=== PATIENT | female | born 2005 | race African-American/Black ===

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

== ENCOUNTER 2024-07-12 11:40 | Outpatient (CLI) | payer OTHER, SELFPAY ==
[2024-07-12 12:51] LABS: Basophils Absolute Auto 0.1 K/mm3 (0.0-0.1); Basophils Percent Auto 0.4 % (0.2-1.2); Eosinophils Absolute Auto 0.5 K/mm3 (0-0.3); Hemoglobin 9.4 g/dL (12.0-15.0); Immature Granulocyte Absolute 0.24 K/mm3 (0.00-0.031); Lymphocytes Absolute Auto 1.99 K/mm3 (0.9-3.2); Lymphocytes Percent Auto 16.4 % (18.3-44.2); Mean Corpuscular HGB Conc 32.4 g/dl (32-36); Mean Corpuscular Hemoglobin 26.9 pg (26-34); Mean Corpuscular Volume 82.9 fl (80-100); Mean Platelet Volume 9.3 fl (7.4-10.4); Monocytes Absolute Auto 0.8 K/mm3 (0.1-0.6); Monocytes Percent Auto 6.6 % (2.6-8.5); Neutrophils Absolute Auto 8.6 K/mm3 (1.3-6.7); Neutrophils Percent Auto 70.6 % (45.5-73.1); Platelet Count Result 395 k/mm3 (150-375); Red Cell Distribution Width 12.8 % (11.5-14.5); White Blood Count 12.1 K/mm3 (4.5-10.0)
[2024-07-12 13:11] LABS: Glucose 1 Hour PP 50gm Dose 110 mg/dL
== END 2024-07-12 11:41 | disposition home or self-care (01) ==
PROVIDERS: PCP Pediatrics Pediatric Emergency Medicine; Visit Provider Nurse Practitioner Family
DX: Z34.90 Encounter for supervision of normal pregnancy, unspecified, unspecified trimester (principal)
CPT/HCPCS: 36415; 82947; 85025

== ENCOUNTER 2024-07-24 17:42 | Outpatient (CLI) | payer OTHER, SELFPAY ==
[2024-07-24 18:51] LABS: Vitamin D 25 Hydroxy 16.2 ng/mL
[2024-07-24 19:15] LABS: HIV 1/2 Ab P24 Ag Result Negative (Negative)
[2024-07-24 19:18] LABS: Hepatitis B Surface Antigen Negative (Negative); Rubella IgG Antibody 44.3 IU/ML
[2024-07-24 19:23] LABS: Hepatitis C Virus Antibody Negative (Negative)
[2024-07-25 07:38] LABS: Rapid Plasma Reagin Non-Reactive (NonReactive)
[2024-07-25 19:05] LABS: Hematocrit 26.8 % (35.0-45.0); Hemoglobin 8.3 g/dL (11.7-15.5); MCH 25.4 pg (27.0-33.0); Red Blood Cell Count 3.27 Million/uL (3.80-5.10)
[2024-07-26 04:14] LABS: Varicella IgG Antibody 3.01 S/CO
== END 2024-07-24 17:43 | disposition home or self-care (01) ==
LOC: ANHLAB 17:43
PROVIDERS: PCP Pediatrics Pediatric Emergency Medicine; Visit Provider Nurse Practitioner Family
DX: Z34.90 Encounter for supervision of normal pregnancy, unspecified, unspecified trimester (principal)
CPT/HCPCS: 36415; 82306; 83021; 84443; 86592; 86703; 86762; 86787; 86803; 86850; 86900; 86901; 87086; 87340; G0432

== ENCOUNTER 2024-08-22 11:09 | Outpatient (CLI) | payer OTHER, SELFPAY ==
[2024-08-22 11:53] LABS: Basophils Absolute Auto 0.1 K/mm3 (0.0-0.1); Basophils Percent Auto 0.6 % (0.2-1.2); Eosinophils Absolute Auto 0.3 K/mm3 (0-0.3); Eosinophils Percent Auto 2.7 % (0-4.4); Hemoglobin 8.5 g/dL (12.0-15.0); Immature Granulocyte Absolute 0.32 K/mm3 (0.00-0.031); Immature Granulocyte Percent A 2.5 % (0-0.5); Lymphocytes Absolute Auto 1.98 K/mm3 (0.9-3.2); Lymphocytes Percent Auto 15.5 % (18.3-44.2); Mean Corpuscular HGB Conc 30.4 g/dl (32-36); Mean Corpuscular Hemoglobin 23.7 pg (26-34); Mean Corpuscular Volume 78.2 fl (80-100); Mean Platelet Volume 9.8 fl (7.4-10.4); Monocytes Absolute Auto 1.2 K/mm3 (0.1-0.6); Monocytes Percent Auto 9.1 % (2.6-8.5); Neutrophils Absolute Auto 8.9 K/mm3 (1.3-6.7); Neutrophils Percent Auto 69.6 % (45.5-73.1); Platelet Count Result 437 k/mm3 (150-375); Red Blood Count 3.58 M/mm3 (4.2-5.4); White Blood Count 12.8 K/mm3 (4.5-10.0)
[2024-08-22 12:44] LABS: HIV 1/2 Ab P24 Ag Result Negative (Negative)
[2024-08-22 12:51] LABS: Rapid Plasma Reagin Non-Reactive (NonReactive)
== END 2024-08-22 11:10 | disposition home or self-care (01) ==
PROVIDERS: Visit Provider Obstetrics & Gynecology
DX: Z34.90 Encounter for supervision of normal pregnancy, unspecified, unspecified trimester (principal)
CPT/HCPCS: 36415; 85025; 86592; 86703; G0432

== ENCOUNTER 2024-09-15 01:02 | Inpatient (IN) | payer OTHER, SELFPAY ==
[2024-09-15] VITALS (85 sets, daily range): BP systolic 78–136; BP diastolic 36–97; PULSE 60–126; RESP 18; TEMP 36.2–37.2; O2SAT 92–100; BMI 30.4
[2024-09-15] MEDS: AMPICILLIN 2 GM/NS 100 ML 2 GM/100 ML BAG IVPB (02:30)
[2024-09-15] MEDS: LACTATED RINGERS 1,000 ML 125 ML IV CONT (02:30)
[2024-09-15 02:31] LABS: Basophils Absolute Auto 0.1 K/mm3 (0.0-0.1); Basophils Percent Auto 0.5 % (0.2-1.2); Eosinophils Absolute Auto 0.2 K/mm3 (0-0.3); Eosinophils Percent Auto 1.6 % (0-4.4); Hemoglobin 8.1 g/dL (12.0-15.0); Immature Granulocyte Percent A 1.6 % (0-0.5); Lymphocytes Percent Auto 21.1 % (18.3-44.2); Mean Corpuscular HGB Conc 31.2 g/dl (32-36); Mean Corpuscular Hemoglobin 22.8 pg (26-34); Mean Corpuscular Volume 73.2 fl (80-100); Mean Platelet Volume 9.8 fl (7.4-10.4); Monocytes Absolute Auto 1.3 K/mm3 (0.1-0.6); Monocytes Percent Auto 10.1 % (2.6-8.5); Neutrophils Absolute Auto 8.3 K/mm3 (1.3-6.7); Neutrophils Percent Auto 65.1 % (45.5-73.1); Platelet Count Result 475 k/mm3 (150-375); Red Blood Count 3.55 M/mm3 (4.2-5.4); Red Cell Distribution Width 15.3 % (11.5-14.5); White Blood Count 12.8 K/mm3 (4.5-10.0)
[2024-09-15] MEDS: OXYTOCIN 30 UNITS/NS 500 ML 30 UNITS/500 ML BAG IV CONT (02:45)
--- NOTE | 2024-09-15 02:52 | LDADM ---
This patient, Tova Montesinos, was admitted to Labor/Delivery/Recovery 104 on 09/15/24 at 01:02. Plans for labor, pain management and were discussed with patient. Patient/family oriented to hospital policies and general routines including ID bracelet, bed and alarms, visiting hours, pain management, procedures, bathroom and other care routines, personal items, smoking policy, room service/diet and guest tray routines, security routines, and visiting hours. Patient/Family are encouraged to report perceived risks to care and to ask questions if they do not understand what they are told or what they should do. See OBIX for further documentation.
[2024-09-15 03:23] LABS: HIV 1/2 Ab P24 Ag Result Negative (Negative)
[2024-09-15] MEDS: AMPICILLIN 1 GM/NS 50 ML 1 GM/50 ML BAG IVPB ×2 (07:00→11:30)
[2024-09-15 09:01] LABS: Rapid Plasma Reagin Non-Reactive (NonReactive)
--- NOTE | 2024-09-15 10:26 | P.PNOB_ITS ---
OB - PN: Subj Subjective Date/time seen: 09/15/24 10:26 Interval history: Cat 1, cervix /-2, forebag rupture, continue pitocin. OB - PN: Obj Data Labs 09/15/24 02:12 Labs: Laboratory Results - last 24 hr 09/15/24 02:12 WBC 12.8 H RBC 3.55 L Hgb 8.1 L Hct 26.0 L MCV 73.2 L MCH 22.8 L MCHC 31.2 L RDW 15.3 H Plt Count 475 H MPV 9.8 Immature Gran % (Auto) 1.6 H Neut % (Auto) 65.1 Lymph % (Auto) 21.1 [place] % (Auto) 10.1 H Eos % (Auto) 1.6 Baso % (Auto) 0.5 Lymph # (Auto) 2.70 [place] # (Auto) 1.3 H Eos # (Auto) 0.2 Baso # (Auto) 0.1 Abs Immat Gran (auto) 0.20 H Absolute Neuts (auto) 8.3 H Absolute Nucleated RBC 0.000 Nucleated RBC % 0.0 RPR Non-reactive HIV 1&2 Ab/P24 Ag 4thGn Negative Blood Type B Positive Antibody Screen Negative OB - PN A/P Time Spent With Patient Time: Total time spent is greater than 50% in coordination of care (as documented) at patient's floor/unit and/or counseling patient:
--- NOTE | 2024-09-15 10:26 | PM.IMHP ---
H&P: HPI History of Present Illness Date/Time: 09/15/24 10:26 Chief Complaint: Leaking of fluid Narrative: She is a 19 y/o G1 at 38 weeks with an edc 09/26/23 presented with c/o leaking. SROM confirmed clear. Cervix 3 cm. PNC significant for GBS in urine late transfer to care and h/o anemia. She is taking iron therapy. Review of Systems Review of Systems: All systems reviewed & are unremarkable except as noted in HPI and below Constitutional: Constitutional: Reports no additional constitutional complaints and Denies headache(s) Eyes: Eyes: Denies spots in vision ENT: Reports system reviewed and no additional complaints, except as documented and Denies headache(s) Cardiovascular: Cardiovascular: Denies chest pain and Denies dyspnea Respiratory: Respiratory: Denies dyspnea Gastrointestinal: Gastrointestinal: Reports no additional gastrointestinal complaints Genitourinary: Genitourinary: Reports amenorrhea Musculoskeletal: Musculoskeletal: Reports no additional musculoskeletal complaints Integumentary/Breasts: Skin/Breast: Denies breast mass and Denies rash Neurologic: Denies headache(s) Psychiatric: Psychiatric: Reports no additional psychiatric complaints PMFSH Past Medical History Medical History Asthma Surgical History Surgical History No significant past surgical history Family History Family History Grandparent Cervical cancer Asthma Mother Asthma Other No significant family history Social History Social History Smoking status: Former smoker Tobacco type: e-cigarettes/vaping Second hand tobacco smoke exposure: No Alcohol intake: never Substance use: never Do You Feel Safe in your Home?: Yes Lack of Transportation: No Lack of Food: Never True Current Housing: I Have Housing Concerned About Future Housing: No Difficulty Paying Gas/Electric Bills: No Difficulty Paying for Meds: No Currently Unemployed: No Education: Bachelor's Degree Difficulty w/ Childcare or Family Care: No Living arrangements: with family Occupation/Education: student Gender identity (if verbalized by the patient): Female Spiritual care concerns: No Meds Home Medications and Allergies Home Medications ?Medication ?Instructions ?Recorded ?Confirmed ?Type albuterol sulfate 90 mcg/actuation 1 puff inhalation Q4H PRN asthma 07/25/24 09/15/24 History aerosol inhaler docosahexaenoic acid 200 mg 200 mg PO DAILY 07/25/24 09/15/24 History capsule ( DHA) ferrous sulfate 325 mg (65 mg 325 mg PO DAILY 08/08/24 09/15/24 History iron) tablet Allergies Allergy/AdvReac Type Severity Reaction Status Date / Time avocado Allergy Mild Hives Verified 09/15/24 02:48 Vital Signs Vital Signs - 24 hr 09/15/24 02:15 09/15/24 02:31 09/15/24 02:45 Temperature Pulse Rate 90 83 75 Blood Pressure 126/69 87/60 L 102/44 L Oxygen Delivery 09/15/24 02:52 09/15/24 03:01 09/15/24 03:15 Temperature 97.7 F Pulse Rate 78 Blood Pressure 111/54 L Oxygen Delivery Room Air 09/15/24 03:31 09/15/24 04:01 09/15/24 04:31 Temperature Pulse Rate 79 78 Blood Pressure 124/62 125/56 L 123/66 Oxygen Delivery 09/15/24 05:00 09/15/24 05:15 09/15/24 05:30 Temperature 98 F Pulse Rate 90 95 Blood Pressure 121/55 L 111/56 L Oxygen Delivery 09/15/24 06:00 09/15/24 06:30 09/15/24 07:00 Temperature Pulse Rate 93 86 100 Blood Pressure 117/57 L 123/66 111/48 L Oxygen Delivery 09/15/24 07:20 09/15/24 07:31 09/15/24 08:00 Temperature 97.8 F Pulse Rate 73 94 Blood Pressure 103/43 L 115/77 Oxygen Delivery 09/15/24 08:31 09/15/24 09:01 09/15/24 09:30 Temperature Pulse Rate 81 81 94 Blood Pressure 120/61 117/59 L 119/70 Oxygen Delivery 09/15/24 10:00 Temperature Pulse Rate 92 Blood Pressure 126/89 Oxygen Delivery Exam Const: General: no acute distress Eyes: General: appearance normal, both eyes and all related structures Resp: Effort & Inspection: normal respiratory effort Cardio: Rate: regular rate GI: Other: Gravid no fundal tenderness no right upper quadrant pain Skin: General skin exam: no rashes or lesions noted Neuro: Cognition (Neuro): normal cognition Extrem: General: normal to inspection Psych: Mental Status: mental status grossly normal H&P: Results Labs Labs: Short CBC 09/15/24 Range/Units 02:12 WBC 12.8 H (4.5-10.0) K/mm3 Hgb 8.1 L (12.0-15.0) g/dL Hct 26.0 L (37.0-47.0) % Plt Count 475 H (150-375) k/mm3 Assessment and Plan Assessment and plan (1) Spontaneous rupture of membranes: Status: Acute Assessment and Plan: 1. Admit 2. Pitocin augmentation if not progressing in labor. (2) GBS carrier: Code(s): Z22.330 - Carrier of Group B streptococcus Status: Acute Assessment and Plan: IV Ampicillin.
[2024-09-15] MEDS: fentaNYL CITRATE INJ (*CRX) 100 MCG/2 ML VIAL IV PUSH (10:43)
--- NOTE | 2024-09-15 14:12 | PM.OBPRVD ---
OB - Vaginal Delivery Note Procedure Delivery date: 09/15/24 Events: Positive Group B Strep (GBS) (in urine in first trimester) Delivery augmentation: Rupture of Membranes and Pitocin Delivery monitor: External FHT and Internal Uterine Route of delivery: Episiotomy description: None Laceration Description: Vaginal (small upper and lower right hemostasis obtained with figure of eight 2.0 vicryl) Delivery repair: vicryl (2.0 vicryl) Specimen: No Quantitative Blood Loss (ml): 150 Anesthesia type: Epidural Complications: No immediate complications Narrative: She was admitted due to PROM. She was started on Ampicillin for GBS prophylaxis. She slowly made progression. Pitocin started. A forebag was AROM and she progressed in labor. Epidural placed on request. She dilated rapidly to complete. tracing with variables. She delivered a male over intact perineum. There was a compound left hand presentation. Infant's nose and mouth suctioned at perineum. The shoulder and the rest of infant delivered. was vigorously crying and placed on maternal abdomen. Delayed cord clamping for one minute. Cord gases and cord blood obtained. Pitocin started. Placenta delivered spontaneously and intact. She sustained small vaginal laceration at left side. Hemostasis obtained with 2.0 vicryl figure of eight stitch. [place] Baby Date of : 09/15/24 Time of : 13:53 Gestational Age by Date: 38 gender: Male presentation: vertex position: Right Occiput Anterior Placenta delivery description: Spontaneous Cord Vessel Description: 3 Vessels and Delayed Cord Clamping score one minute: 9 score five minutes: 9
[2024-09-15] MEDS: OXYTOCIN 30 UNITS/NS 500 ML 30 UNITS/500 ML BAG 125 UNITS IV CONT (14:30)
--- NOTE | 2024-09-15 16:56 | PC.NURSE ---
Patient transferred to post room #282 via wheelchair. Support person present. Oriented to unit, room, information board, rooming in, admission packet and security measures. Patient verbalizes understanding.
[2024-09-15] MEDS: IBUPROFEN 600 MG TABLET PO (23:42)
[2024-09-16 07:30] VITALS: BP 114/69; PULSE 65; RESP 16; TEMP 36.9; O2SAT 98
[2024-09-16 07:33] LABS: Hematocrit 24.9 % (37.0-47.0); Hemoglobin 7.7 g/dL (12.0-15.0)
[2024-09-16] MEDS: POLYSACCHARIDE IRON COMPLEX 150 MG CAPSULE PO ×2 (08:11→16:53)
[2024-09-16] MEDS: MULTIVIT/MIN/PREN/FOL AC/IRON TABLET 1 TAB PO (08:11)
[2024-09-16] MEDS: DOCUSATE SODIUM 100 MG CAPSULE PO ×2 (08:11→16:54)
--- NOTE | 2024-09-16 09:08 | PC.NURSE ---
Introductions were made, then consulted with patient to assess needs related to . Mother led the conversation with her?plans to feed?her and the?experience so far. Mother is wanting to exclusively breastfeed and she had a few feeds through the night where her nipple was pinched and she knows that she needed to latch baby deeper. Encouraged understanding of the benefits of skin to skin (demonstrating unwrapping and placing upright on her chest), stimulating with massage touch, changing positions to encourage wakefulness, how to watch for early feeding cues, responsive feeding, feeding on demand (aiming for 8-12 times in 24 hours, about every 2-3 hours), milk production, building/maintaining a milk supply, duration of feeding, signs of adequate intake/output and how to record on the feeding sheet. Mother works well with her with encouragement and education. Reviewed positioning and ear, shoulder, hip alignment, supporting the breast to facilitate a deep latch, asymmetrical latch (off-center), leading with the chin with a big, open, wide gape and body close to mother. latched optimally to the [right] breast in [cradle] position. Education given to the mother of how to visualize the suckling (with good rocking jaw motion), swallows (dropping of the lower jaw) and how to listen for drinking at the breast (the ka sound). Infant was [able] to maintain latch without pain to mother protecting the nipple with optimal positioning and latching. Mother and RN were able to hear swallows. Reviewed comfort measures of healing with a warm, wet washcloth to rinse breast, then leave open to air-dry, good handwashing when or touching the breast/nipples to prevent infection. Mother voiced understanding of skin to skin, stimulating with massage touch, responsive feedings, hand expressed colostrum, talking to to encourage if it has been 2 -2.5 hours since the start of the last , to call if infant does not latch, or if there is discomfort with . Resources used for education were facilitated with the [visual educational handouts/ tool/mom and baby guide], Inpatient/outpatient resources provided with business card, feeding sheet, name written on the communication board, and the mom/baby guide. Parents voiced understanding of information, demonstrated learning and will call if there is a request for assistance. Reported to the Primary RN.
--- NOTE | 2024-09-16 09:14 | WPDANLDPN2 ---
Anes-Prog Note L&D Date/Time: 09/16/24 09:14 Comfortable throughout: labor and delivery Neuraxial method: epidural Epidural/Spinal procedure site: clean & non-tender Neuro status: Neuro function grossly intact. Cardiovascular status: normal Respiratory status: normal Airway patency: baseline Mental status: baseline Post-Op hydration status: normal Vital Signs: Last Vital Signs Temp 36.9 C 09/16/24 07:30 Pulse 65 09/16/24 07:30 Resp 16 09/16/24 07:30 BP 114/69 09/16/24 07:30 Pulse Ox 98 09/16/24 07:30 O2 Del Method Room Air 09/15/24 19:10 Pain score (VAS): 0/10 Post-procedural complaints: none Patient feedback: Patient satisfied with anesthetic care.
[2024-09-16] MEDS: IBUPROFEN 600 MG TABLET PO ×2 (12:08→19:19)
[2024-09-16 12:15] VITALS: BP 125/63; PULSE 100; RESP 16; TEMP 37.1; O2SAT 98
--- NOTE | 2024-09-16 18:09 | PC.NURSE ---
1500. Mother verbalizes she is able to independently latch infant with appropriate positioning and alignment. She denies any nipple discomfort and is responsively . is currently meeting outcomes for weight, output, jaundice, blood sugar and feeding frequencies of 8-12 times in 24 hours. Mother declines any additional assistance or education at this time. Mother is encouraged to call for assistance if her doesn?t latch, pain with latching, questions or concerns. Mother voiced understanding of information shared along with the mom/baby guide for an additional resource. Reported to the Primary RN.
[2024-09-16] MEDS: ACETAMINOPHEN 325 MG TABLET 650 MG PO (19:19)
[2024-09-16 19:45] VITALS: BP 97/59; PULSE 64; RESP 14; TEMP 36.8; O2SAT 99
[2024-09-17] MEDS: ACETAMINOPHEN 325 MG TABLET 650 MG PO (01:33)
[2024-09-17] MEDS: IBUPROFEN 600 MG TABLET PO (01:34)
[2024-09-17 07:30] VITALS: BP 113/71; PULSE 89; RESP 16; TEMP 36.6; O2SAT 99
[2024-09-17] MEDS: DOCUSATE SODIUM 100 MG CAPSULE PO (07:31)
[2024-09-17] MEDS: MULTIVIT/MIN/PREN/FOL AC/IRON TABLET 1 TAB PO (07:31)
[2024-09-17] MEDS: POLYSACCHARIDE IRON COMPLEX 150 MG CAPSULE PO (07:31)
--- NOTE | 2024-09-17 08:20 | PC.NURSE ---
Consulted with mother concerning needs and she shared her ability to independently latch infant optimally without pain. Mother is feeding appropriately for growth of and understands stimulating to eat if needed. Infant has had appropriate feedings in the last 24 hours meets the outcomes for weight, output, blood sugar and jaundice at this time. Reinforced understanding of milk production, transition of milk, signs of adequate intake, transition of stool, prevention/relief of engorgement, plugged ducts, mastitis, responsive watching for feeding cues, community resources ([facility] form fax[facility] to [facility]), and when to call a provider using the resource of the feeding sheet along with the mom and baby guide. Mother voiced understanding of the information shared, is confident to continue effectively her infant at home, when to call for assistance, denies any additional assistance or education at this time. Reported to the Primary RN.
--- NOTE | 2024-09-17 12:09 | P.DS_ITS ---
DS: Admitting Diagnosis Discharge Date 09/17/24 Admitting Diagnosis Spontaneous rupture of membranes DS: Discharge Diagnosis Discharge Diagnosis (1) Vaginal delivery: Code(s): O80 - Encounter for full-term uncomplicated delivery Status: Acute OB - DS: Summary Hospital Course Hospital Course: She was admitted for early labor with spontaneous rupture membranes. Labor was augmented with Pitocin. She had uncomplicated vaginal delivery. she did well. she has asymptomatic anemia which she was receiving Oral iron therapy. Baby did well. She had adequate pain control decreasing lochia was ambulating well was discharged home on day 2. OB Procedures : Ultrasound OB Procedures Intrapartum: Spontaneous Vag Delivery OB Procedures: : None Peripartum Data Delivery Method: Natural Vaginal Laceration Description: Vaginal (small upper and lower right hemostasis obtained with figure of eight 2.0 vicryl) Episiotomy description: None complications: none Status at Discharge Functional status at discharge: independent ambulation Time Spent with Patient Time attestation: Total time spent providing and/or coordinating discharge services: Exam Const: General: cooperative Orientation/consciousness: oriented to person, oriented to place and oriented to time HENMT: Face/Nose/Sinus: Normal external nose present Eyes: General: appearance normal, both eyes and all related structures Resp: Effort & Inspection: normal respiratory effort GI: Inspection: normal to inspection Skin: General skin exam: normal color Neuro: General: oriented to person, oriented to place and oriented to time Extrem: General: normal to inspection and no calf tenderness Psych: Appearance: grossly normal Mental Status: mental status grossly normal Discharge Plan Discharge Attending physician on discharge: Dawson Lane Consulting providers: Ernestine Cano Discharging Clinician: Dawson Lane Anticipated Discharge Date/Time: 09/17/24 12:03 Patient Disposition: Home, Self-Care Activity: may shower and pelvic rest Diet: regular Patient Instructions: Antibiotic Form, Vaginal Delivery (DC) Patient Language: Greek Stand Alone Forms: General Discharge Information Follow-up/Referrals: Dawson Lane MD [Physician] - Call for Appointment Discharge Medications: No Action ferrous sulfate 325 mg (65 mg iron) tablet 325 mg PO DAILY DHA 200 mg capsule 200 mg PO DAILY albuterol sulfate 90 mcg/actuation HFA aerosol inhaler 1 puff inhalation Q4H PRN (Reason: asthma) Date of admission: 09/15/24 01:02 Primary Care Provider: PHYSICIAN,AGRISCIENCE TECHNOLOGY INSTRUCTOR Admitting Provider: Dawson Lane Attending physician on admission: Dawson Lane Condition: Stable
[2024-09-19 09:19] VITALS: BP 118/70; PULSE 95; RESP 18; TEMP 36.9; O2SAT 100
--- OUTSIDE RECORDS SUMMARY | 2024-09-22 02:00 | XMS_ITS | Encounter Summary ---
Author Organization [facility] Healthcare Address [address] [place] [address] Care Team Providers Care Foreman Shipping Department Name Role Phone Unavailable Primary Care Provider Unavailabl e Encounter Details Date Type Department Care Team (Late st Contact Info) Description 10/31/2008 1:11 PM DYNAMICS AX CONSULTANT - 10/31/2008 11:59 PM DYNAMICS AX CONSULTANT Hospital Encounter [facility] Deirdre Oneil MD [address] [place] [id number] Fever due to unspecified condition; Cough Social History Tobacco Use Types Packs/Day Years Used Date Smoking Tobacco: Never Assessed Comments Unknown Sex and Gender Information Value Date Recorded Sex Assigned at Not on file Legal Sex Female 4:21 PM DYNAMICS AX CONSULTANT Gender Identity Not on file Sexual Orientation Not on file documented as of this encounter Plan of Treatment Not on file documented as of this encounter Visit Diagnoses Diagnosis Fever due to unspecified condition Cough documented in this encounter
--- OUTSIDE RECORDS SUMMARY | 2024-09-22 02:00 | XMS_ITS | Clinical Summary ---
Author Organization [facility] Address [address] [place] [phone] Phone Care Team Providers Care Air Intelligence Officer Name Role Phone Unavailable Primary Care Provider Unavailabl e Encounters Date Type Department Care Team Description 07/30/2024 External Device Data STL ABSTRACTION Provider, Abstract 07/25/2024 2:30 PM CASCADE OPERATOR - 07/25/2024 11:59 PM CASCADE OPERATOR Hospital Encounter [facility] Maternal and [facility] [address] [place] [address] Dawson Baig MD Discharge Disposition: Home or Self Care from Last 3 Months Social History Tobacco Use Types Packs/Day Years Used Date Smoking Tobacco: Never Assessed Sex and Gender Information Value Date Recorded Sex Assigned at Not on file Gender Identity Not on file Sexual Orientation Not on file Plan of Treatment Health Maintenance Due Date Last Done Comments PNEUMOCOCCAL VACCINE 0-64 YE ARS (1 of 2 - PCV) 2010 CHLAMYDIA SCREENING (ANNUAL) 11-24 YEARS 2015 HPV VACCINES (1 - 3-dose series) 2019 DTAP/TDAP/TD VACCINES (1 - Tdap) 2023 HEPATITIS B VACCINES (1 of 3 - 19+ 3-dose series) 2023 INFLUENZA VACCINE (#1) 2024 11/14/2015 COVID-19 Vaccine (3 - 2023- season) 05/19/202411/2020, 05/26/2021 Procedures Procedure Name Priority Date/Time Associated Diagnosis Comments US OB DETAIL SINGLE GEST Routine 07/25/2024 3:47 PM CASCADE OPERATOR Short cervix affecting from Last 3 Months Results * US OB DETAIL SINGLE GEST (07/25/2024 3:47 PM CASCADE OPERATOR) Anatomical Region Laterality Modality Pelvis Ultrasound 07/25/2024 3:47 PM CASCADE OPERATOR Narrative 07/25/2024 3:53 PM CASCADE OPERATOR STL COMP ----- Pat. Name: MICHELE MONTESINOS Study Date: 07/25/2024 3:47pm Pat. NO: [id number] Referring ??MD: DAWSON BAIG MD Site: [place] Rn Review: Jazmín Vuong RDMS : 2005 Age: 19 ----- INDICATION ----- Anatomy Survey CODING ----- Diagnoses ? Z3A.31: Weeks of gestation ?Z36.3: Encounter for screening for malformations Procedures ?77880: Ultrasound, uterus, real time with image documentation, and maternal evaluation ?plus detailed anatomic examination, transabdominal approach HISTORY ----- OB History ? 1. Para 0 MATERNAL ASSESSMENT ----- Physical Exam ? Weight 69 kg. BMI 27.10 kg/m?? METHOD ----- Transabdominal ultrasound examination ----- Zazueta . Number of fetuses: 1 DATING ----- Method of dating: based on stated JALEN GA by prior assessment 31 w + 0 d JALEN by prior assessment: 09/26/2024 Ultrasound examination on: 07/25/2024 GA by U/S based upon: AC, BPD, EFW, Femur, HC GA by U/S 30 w + 2 d JALEN by U/S: 10/01/2024 Assigned: based on stated JALEN, selected on 07/25/2024 Assigned GA 31 w + 0 d Assigned JALEN: 09/26/2024 BIOMETRY ----- BPD ?73.4 ? mm ? 29w 3d ? 6% ?Hadlock OFD ?96.3 ? mm ? 31w 1d ? 53% ?Darya HC ? 274.0 ?mm ? 29w 6d ? 3% ?Hadlock Cerebellum tr ?40.3 ? mm ? 33w 4d ? 72% ?Perdomo AC ? 283.1 ?mm ? 32w 2d ? 83% ?Hadlock Femur ?55.9 ? mm ? 29w 3d ? 6% ?Hadlock Humerus ?48.9 ? mm ? 28w 5d ? 5% ?Darya HC / AC ?0.97 ?6% ? Nicolaides Weight Calculation: EFW ? 1,674 ? g ? 30w 4d ?37% ?Hadlock EFW (lb,oz) ? 3 lb 11 ? oz EFW by ?Hadlock ([id number]) Head / Face / Neck Biometry: Custom Framing Specialist ? 3.7 ? mm CM ? 3.9 ? mm ? <1% ?Nicolaides Outer IOD ? 43.4 ?mm ? 27w 3d ?<1% ?Darya Heart / Great Vessels Biometry: Ao isthmus ? 3.6 ?mm Extremities / Bony Struc Biometry: FL / BPD ?0.76 FL / HC ? 0.20 FL / AC ? 0.20 GENERAL EVALUATION ----- Cardiac activity present. FHR 149 bpm. movements: present. Presentation: cephalic Placenta: Placental site: posterior not low Umbilical cord: Cord vessels: 3 vessel cord. Insertion site: placental insertion: normal Amniotic fluid: Amount of AF: normal amount. MVP 4.9 cm. VERO 9.8 cm. Q1 4.9 cm, Q2 2.2 cm, Q3 2.7 cm, Q4 0.0 cm ANATOMY ----- The following structures appear normal: Head / Neck ? Cranium. Lateral ventricles. Choroid plexus. Midline falx. Cavum septi pellucidi. Cerebellum. Cisterna ?magna. Thalami. Face ?Lips. Profile. Nose. Palate. Orbits. Heart / Thorax ?4-chamber view. RVOT view. LVOT view. 3-vessel view. 0-vmiwnc-ocxvsfo view. Situs. Aortic arch view. ?Ductal arch view. Superior vena cava. Inferior vena cava. High short axis view. Cardiac rhythm. ?Diaphragm. Abdomen ? Stomach. Kidneys. Bladder. Spine ? Cervical spine. Thoracic spine. Lumbar spine. Sacral spine. Extremities / ? Arms. Right arm. Legs. Skeleton The following structures could not be adequately visualized: Abdomen ? Abdominal wall. Extremities / ? Right hand. Left arm. Left hand. Right foot. Left foot. Skeleton MATERNAL STRUCTURES ----- Cervix ?Visualized ?Approach - Transabdominal Right Ovary ? Suboptimal Left Ovary ?Normal ?Size 35 mm x 27 mm x 17 mm. Vol 8.2 cm?? GROWTH OVERVIEW ----- Exam date ?GA ?BPD (mm) ?HC (mm) ? AC (mm) ? FL (mm) ? HL (mm) ? EFW (g) 07/25/2024 ?31w 0d ?73.4 ?6% ?274.0 ? 3% ?283.1 ?83% ?55.9 ?6% ?48.9 ?5% ?37% COMMENT ----- Patient's name and date of were verified by the ballast cleaning operator before the exam IMPRESSION ----- 1. Single living fetus with a gestational age of 31w 0d based on the reported clinical dates. 2. Current growth parameters are consistent with the stated EDC. The fetus is appropriate for gestational age in size at the 37% (1674 g). 3. Detailed anatomic survey is unremarkable. No gross structural abnormalities noted. No sonographic markers for aneuploidy noted. Suboptimal: PRISON, hands, feet, left arm 4. Amniotic fluid volume is normal for gestational age. 5. The cervical length is within normal range for gestational age. 6.Placenta is posterior . No previa/not low-lying. The placental cord insertion appears normal. Recommendations: - Further ultrasounds based on clinical indication. Thank you for allowing us to participate in the care of this patient. Procedure Note Samanta Patiño MD - 07/25/2024 STL COMP ----- Pat. Name:Brady MONTESINOS Date:07/25/2024 3:47pm Pat. NO: [id number] MD:DAWSON BAIG MD [facility]azm[facility] Vuong RDMS :2005Age:19 ----- INDICATION ----- Anatomy Survey CODING ----- Diagnoses Z3A.31: Weeks of gestation Z36.3: Encounter for screening formalformations Procedures [id number]: Ultrasound, uterus, real time withimage documentation, and maternal evaluation plus detailed anatomic examination,transabdominal approach HISTORY ----- OB History 1. Para 0 MATERNAL ASSESSMENT ----- Physical Exam Weight 69 kg. BMI 27.10 kg/m?? METHOD ----- Transabdominal ultrasound examination ----- Zazueta . Number of fetuses: 1 DATING ----- Method of dating:based on stated JALEN GA by prior [id number] w + 0 d JALEN by prior assessment:09/26/2024 Ultrasound examination on:07/25/2024 GA by U/S based upon:AC, BPD, EFW, Femur, HC GA by U/S30 w + 2 d JALEN by U/S:10/01/2024 Assigned:based on stated JALEN, selected on 07/25/2024 Assigned GA31 w + 0 d Assigned JALEN:09/26/2024 BIOMETRY ----- BPD 73.4 mm 29w 3d6% Hadlock OFD 96.3 mm 31w 1d53% Darya HC 274.0 mm 29w 6d3% Hadlock Cerebellum tr 40.3 mm 33w 4d72% Perdomo AC 283.1 mm 32w 2d83% Hadlock Femur 55.9 mm 29w 3d6% Hadlock Humerus 48.9 mm 28w 5d5% Darya HC / AC 0.97 6%Nicolaides Weight Calculation: EFW 1,674 g 30w 4d37% Hadlock EFW (lb,oz) 3 lb 11 oz EFW by Hadlock ([id number]) Head / Face / Neck Biometry: Custom Framing Specialist 3.7 mm CM 3.9 mm <1%Nicoalyssaides Outer IOD 43.4 mm 27w 3d <1%Darya Heart / Great Vessels Biometry: Ao isthmus 3.6mm Extremities / Bony Struc Biometry: FL / BPD 0.76 FL / HC 0.20 FL / AC 0.20 GENERAL EVALUATION ----- Cardiac activity present. FHR 149 bpm. movements: present.Presentation: cephalic Placenta: Placental site: posterior not low Umbilical cord: Cord vessels: 3 vessel cord. Insertion site: placentalinsertion: normal Amniotic fluid: Amount of AF: normal amount. MVP 4.9 cm. VERO 9.8 cm. Q14.9 cm, Q2 2.2 cm, Q3 2.7 cm, Q4 0.0 cm ANATOMY ----- The following structures appear normal: Head / Neck Cranium. Lateral ventricles. Choroid plexus.Midline falx. Cavum septi pellucidi. Cerebellum. Cisterna magna. Thalami. Face Lips. Profile. Nose. Palate. Orbits. Heart / Thorax 4-chamber view. RVOT view. LVOT view. 3-vesselview. 6-jwqwkw-uzynojt view. Situs. Aortic arch view. Ductal arch view. Superior vena cava. Inferiorvena cava. High short axis view. Cardiac rhythm. Diaphragm. Abdomen Stomach. Kidneys. Bladder. Spine Cervical spine. Thoracic spine. Lumbar spine.Sacral spine. Extremities / Arms. Right arm. Legs. Skeleton The following structures could not be adequately visualized: Abdomen Abdominal wall. Extremities / Right hand. Left arm. Left hand. Right foot. Leftfoot. Skeleton MATERNAL STRUCTURES ----- Cervix Visualized Approach - Transabdominal Right Ovary Suboptimal Left Ovary Normal Size 35 mm x 27 mm x 17 mm. Vol 8.2 cm?? GROWTH OVERVIEW ----- Exam date GA BPD (mm) HC (mm) AC (mm) FL(mm) HL (mm) EFW (g) 07/25/2024 31w 0d 73.4 6% 274.0 3% 283.1 83% 55.96% 48.9 5% 1,674 37% COMMENT ----- Patient's name and date of were verified by the ballast cleaning operator beforethe exam IMPRESSION ----- 1. Single living fetus with a gestational age of 31w 0d based on thereported clinical dates. 2. Current growth parameters are consistent with the stated EDC. The fetusis appropriate for gestational age in size at the 37% (1674 g). 3. Detailed anatomic survey is unremarkable. No gross structuralabnormalities noted. No sonographic markers for aneuploidy noted. Suboptimal: PRISON, hands, feet, left arm 4. Amniotic fluid volume is normal for gestational age. 5. The cervical length is within normal range for gestational age. 6.Placenta is posterior . No previa/not low-lying. The placental cordinsertion appears normal. Recommendations: - Further ultrasounds based on clinical indication. Thank you for allowing us to participate in the care of this patient. Dawson Baig MD US ORDERABLES from Last 3 Months
--- OUTSIDE RECORDS SUMMARY | 2024-09-22 02:00 | XMS_ITS | Encounter Summary ---
Author Organization [facility] Healthcare Address [address] [place] [address] Care Team Providers Care Matlab Developer Name Role Phone Unknown, Notinfile Primary Care Provider Unavail able Reason for Visit * Reason Comments UTI Entered automaticall y based on patient selection in VPEP. Encounter Details Date Type Department Care Team (Late st Contact Info) Description 08/22/2023 10:25 AM BIOFUELS PRODUCT MANAGER E-Visit [facility] Medical [facility] Virtual Care [address] [place] [phone] Aleah Jung MD [address] [place] [address] [address] [facility] [address] [place] [address] Your Medications Social History Tobacco Use Types Packs/Day Years Used Date Smoking Tobacco: Never Assessed Comments Unknown Sex and Gender Information Value Date Recorded Sex Assigned at Not on file Legal Sex Female 4:21 PM BIOFUELS PRODUCT MANAGER Gender Identity Not on file Sexual Orientation Not on file documented as of this encounter Ordered Prescriptions Prescription Sig Dispense Quantity Refills Last Filled Start Date End Date nitrofurantoin monohydrate (Macrobid) 100 mg capsule Take 1 capsule (100 mg total) by mouth 2 (two) times a day for 7 days 14 capsule 08/22/2023 3 documented in this encounter Miscellaneous Notes * E-Visit Note - Aleah Jung MD - 08/22/2023 10:33 AM CST Tova Montesinos 08/22/2023 E-Visit Submission Subjective/Objective: Tova Montesinos contacted the office today via e-visit for UTI. C/o 2 days or less h/o dysuria, increased urinary frequency and urgency with cloudy urine. Denies fevers, blood in urine. States it feels like previous UTI's. States she might be . The patient-submitted questionnaire was assessed for pertinent information and the patient's problem list, medication list, and allergies were reviewed as part of the e-visit. The chart was updated to identify any changes in these areas. Assessment: Diagnosis Plan 1. Acute cystitis without hematuria Plan: Macrobid erx'ed to pharmacy. If any problems or questions or no improvement of symptoms in the nextfew days, please f/u w/ PCP. If symptoms worsen, go to the ED. The patient was given information regarding any new medication(s) prescribed, if applicable, as well as any gymi-ont-wzhigqd remedies. She was given instructions regarding follow up and timeframe if symptoms worsen or don???t improve. These instructions were included in the VPEP message reply tothe patient. Patient Instructions were included in the message reply to patient. My total encounter time on 08/22/2023 was 5 minutes which was spent in the activities documented inthe note. New Medications Ordered This Visit nitrofurantoin monohydrate (Macrobid) 100 mg capsule Sig: Take 1 capsule (100 mg total) by mouth 2 (two) times a day for 7 days Dispense: 14 capsule Refill: 0 Aleah Jung MD UELS PRODUCT MANAGER documented in this encounter Plan of Treatment Not on file documented as of this encounter Visit Diagnoses Diagnosis Acute cystitis without hematuria- Primary documented in this encounter Care Teams Matlab Developer Relationship Specialty Start Date End Date Unknown, Notinfile PCP - General 11/23/22 documented as of this encounter
--- OUTSIDE RECORDS SUMMARY | 2024-09-22 02:00 | XMS_ITS | Encounter Summary ---
Author Organization [facility] Facility Care Team Providers Care Airplane Captain Name Role Phone Unavailable Primary Care Provider Unavailabl e Encounter Details Date Type Department Care Team (Late st Contact Info) Description 02/10/2012 11:40 AM CDT - 02/10/2012 11:59 PM CDT Hospital Encounter [facility] CLINCONV Asthma; Cough Social History Tobacco Use Types Packs/Day Years Used Date Smoking Tobacco: Never Assessed Comments Unknown Sex and Gender Information Value Date Recorded Sex Assigned at Not on file Legal Sex Female 4:21 PM LIMOUSINE DRIVER Gender Identity Not on file Sexual Orientation Not on file documented as of this encounter Plan of Treatment Not on file documented as of this encounter Visit Diagnoses Diagnosis Asthma Unspecified asthma Cough documented in this encounter
--- OUTSIDE RECORDS SUMMARY | 2024-09-22 02:00 | XMS_ITS | Encounter Summary ---
Author Organization [facility] Healthcare Address [address] [place] [address] Care Team Providers Care Instrument Calibrator Name Role Phone Unavailable Primary Care Provider Unavailabl e Encounter Details Date Type Department Care Team (Late st Contact Info) Description 07/24/2009 7:10 AM AUTO RENTAL SUPERVISOR - 07/24/2009 11:59 PM AUTO RENTAL SUPERVISOR Hospital Encounter [facility] CLINCONV Abdominal pain; Vomiting alone Social History Tobacco Use Types Packs/Day Years Used Date Smoking Tobacco: Never Assessed Comments Unknown Sex and Gender Information Value Date Recorded Sex Assigned at Not on file Legal Sex Female 4:21 PM AUTO RENTAL SUPERVISOR Gender Identity Not on file Sexual Orientation Not on file documented as of this encounter Plan of Treatment Not on file documented as of this encounter Visit Diagnoses Diagnosis Abdominal pain Abdominal pain, unspecified site Vomiting alone documented in this encounter
--- OUTSIDE RECORDS SUMMARY | 2024-09-22 02:00 | XMS_ITS | Clinical Summary ---
Author Organization [facility] Address [address] [place] [address] Care Team Providers Care Global Commodity Manager Name Role Phone Unknown, Notinfile Primary Care Provider Unavail able Allergies No known active allergies Medications Xulane 150-35 mcg/24 hr APPLY 1 PATCH AND LEAVE ON FOR 3 WEEKS, REMOVE FOR 1 WEEK. THEN START AGAIN 3 Active albuterol HFA (PROVENTIL HFA,VENTOLIN HFA,PROAIR HFA) 90 mcg/actuation inhalerIndication s:Mild intermittent asthma with exacerbation Inhale 2 puffs every 6 (six) hours as needed for wheezing or shortness of breath 1 each 3 Active Active Problems Problem Noted Date Diagnosed Date Snoring 04/18/2012 Bronchial asthma 02/10/2012 Hay fever 02/10/2012 Immunizations Name Administration Dates Next Due Influenza, Quadrivalent, Spl it, Preservative Free, Intramuscular 11/14/2015 Pfizer SARS-CoV-2 Monovalent Vaccination (12+ Yrs) PURPLE 07/21/2021,05/26/2021 Family History Medical History Relation Name Comments Eustachian Tube Dysfunction Brother Eustachian Tube Disorder - (Added by TW Conv) Sleep apnea Brother Sleep Apnea - ( Added by TW Conv) Allergies Mother Allergies - (Ad ded by TW Conv) Relation Name Status Comments Brother Mother Social History Tobacco Use Types Packs/Day Years Used Date Smoking Tobacco: Never Assessed Comments Unknown Sex and Gender Information Value Date Recorded Sex Assigned at Not on file Legal Sex Female 4:21 PM EMERGENCY DETAIL DRIVER Gender Identity Not on file Sexual Orientation Not on file Obstetrics History Last Filed Vital Signs Vital Sign Reading Time Taken Comments Blood Pressure 113/74 11/23/2022 2:18 PM EMERGENCY DETAIL DRIVER Pulse 87 11/23/2022 2:18 PM EMERGENCY DETAIL DRIVER Temperature 36.5 ??C (97.7 ??F) 11/23/2022 2:18 PM CS T Respiratory Rate 16 11/23/2022 2:18 PM EMERGENCY DETAIL DRIVER Oxygen Saturation 97% 11/23/2022 2:18 PM EMERGENCY DETAIL DRIVER Inhaled Oxygen Concentration - - Weight 61.7 kg (136 lb) 11/23/2022 2:18 PM EMERGENCY DETAIL DRIVER Height 160 cm (5' 3 ) 11/23/2022 2:18 PM EMERGENCY DETAIL DRIVER Body Mass Index 24.09 11/23/2022 2:18 PM EMERGENCY DETAIL DRIVER Plan of Treatment Health Maintenance Due Date Last Done Comments Depression Screening 2004 Hepatitis C Screening 2004 Pneumococcal vaccine <65 (1 of 1 - PPSV23 or PCV20) 2010 01/17/2006, 2004, 2004, Additional history exists Meningococcal B Vaccine (1 o f 2 - Patient Seeks Protection) 2020 Regular Well Visit/Exam 18-64 2022 Covid-19 Vaccine (3 - 2023-2 5 season) 2024 07/21/2021, 05/26/2021 Influenza Vaccine (#1) 2024 7, 08/08/2016, 11/14/2015, Additional history exists DTaP/Tdap/Td Vaccine (7 - Td or Tdap) 05/01/2025 05/01/2015, 01/03/2009, 05/26/2008, Additional history exists Varicella Vaccines Completed 01/03/2009, 01/17/2006 HPV Vaccines Completed 05/01/2015, 04/18/2014 Meningococcal Vaccine Completed 05/09/2020, [address] [place] [address] [employer] [facility] [address] [address] [place] [address] Care Teams Global Commodity Manager Relationship Specialty Start Date End Date Unknown, Notinfile PCP - General 11/23/22
--- OUTSIDE RECORDS SUMMARY | 2024-09-22 02:00 | XMS_ITS | Encounter Summary ---
Author Organization [facility] Facility Care Team Providers Care Supervisor Broadloom Name Role Phone Unavailable Primary Care Provider Unavailabl e Encounter Details Date Type Department Care Team (Late st Contact Info) Description 07/29/2008 12:09 PM ED TRANSPORTER - 07/29/2008 6:40 PM ED TRANSPORTER Hospital Encounter [facility] CLINCONV Physician, Eu Social History Tobacco Use Types Packs/Day Years Used Date Smoking Tobacco: Never Assessed Comments Unknown Sex and Gender Information Value Date Recorded Sex Assigned at Not on file Legal Sex Female 4:21 PM ED TRANSPORTER Gender Identity Not on file Sexual Orientation Not on file documented as of this encounter Plan of Treatment Not on file documented as of this encounter Visit Diagnoses Not on filedocumented in this encounter
--- OUTSIDE RECORDS SUMMARY | 2024-09-22 02:00 | XMS_ITS | Encounter Summary ---
Author Organization [facility] Healthcare Address [address] [place] [address] Care Team Providers Care Customer Assistance Representative Name Role Phone Unavailable Primary Care Provider Unavailabl e Encounter Details Date Type Department Care Team (Late st Contact Info) Description 05/16/2008 10:15 AM CDT - 05/18/2008 12:00 PM CDT Hospital Encounter [facility] Deirdre Oneil MD [address] [place] [address] [address] Social History Tobacco Use Types Packs/Day Years Used Date Smoking Tobacco: Never Assessed Comments Unknown Sex and Gender Information Value Date Recorded Sex Assigned at Not on file Legal Sex Female 4:21 PM PASSENGER VESSEL CHEF Gender Identity Not on file Sexual Orientation Not on file documented as of this encounter Plan of Treatment Not on file documented as of this encounter Visit Diagnoses Not on filedocumented in this encounter
--- OUTSIDE RECORDS SUMMARY | 2024-09-22 02:00 | XMS_ITS | Encounter Summary ---
Author Organization [facility] Address [address] [place] [address] Care Team Providers Care Meat Slicer Name Role Phone Unavailable Primary Care Provider Unavailabl e Reason for Referral * Radiology Services (Routine) - Pending Review Specialty Diagnoses / Procedures Referred By Contac t Referred To Contact Diagnoses Short cervix affecting Procedures US OB DETAIL SINGLE GEST Dawson Baig MD [address] [address] [facility] [address] [place] [address] Referral ID Status Reason Start Date Expiration Date V isits Requested Visits Authorized [id number] Pending Review 07/11/2024 08/11/2025 1 1 NE GEOLOGIST Reason for Visit * Radiology Services (Routine) - Pending Review Specialty Diagnoses / Procedures Referred By Contac t Referred To Contact Diagnoses Short cervix affecting Procedures US OB DETAIL SINGLE GEST Dawson Baig MD [address] [place] [id number] [facility] [address] [place] [address] Referral ID Status Reason Start Date Expiration Date V isits Requested Visits Authorized [id number] Pending Review 07/11/2024 08/11/2025 1 1 Encounter Details Date Type Department Care Team (Latest Contact Info) Description 07/25/2024 2:30 PM MARINE GEOLOGIST - 07/25/2024 11:59 PM MARINE GEOLOGIST Hospital Encounter [facility] [address] [place] [address] Dawson Baig MD [address] [facility] [address] [place] [address] Discharge Disposition: Home or Self Care Social History Tobacco Use Types Packs/Day Years Used Date Smoking Tobacco: Never Assessed Sex and Gender Information Value Date Recorded Sex Assigned at Not on file Gender Identity Not on file Sexual Orientation Not on file documented as of this encounter Plan of Treatment Not on file documented as of this encounter Procedures Procedure Name Priority Date/Time Associated Diagnosis Comments US OB DETAIL SINGLE GEST Routine 07/25/2024 3:47 PM MARINE GEOLOGIST Short cervix affecting documented in this encounter Results * US OB DETAIL SINGLE GEST (07/25/2024 3:47 PM MARINE GEOLOGIST) Anatomical Region Laterality Modality Pelvis Ultrasound 07/25/2024 3:47 PM MARINE GEOLOGIST Narrative 07/25/2024 3:53 PM MARINE GEOLOGIST STL COMP ----- Pat. Name: MICHELE MONTESINOS Study Date: 07/25/2024 3:47pm Pat. NO: [id number] Referring ??MD: DAWSON BAIG MD Site: [place] [facility] Operator: Jazmín Vuong RDMS : 2005 Age: 19 ----- INDICATION ----- Anatomy Survey CODING ----- Diagnoses ? Z3A.31: Weeks of gestation ?Z36.3: Encounter for screening for malformations Procedures ?08153: Ultrasound, uterus, real time with image documentation, [...] lb 11 ? oz EFW by ?Hadlock ([id number]) Head / Face / Neck Biometry: Journalism Intern ? 3.7 ? mm CM ? 3.9 [...] view. RVOT view. LVOT view. 3-vessel view. 4-zvtehe-zupfkgz view. Situs. Aortic arch view. ?Ductal arch [...] 3% ?283.1 ?83% ?55.9 ?6% ?48.9 ?5% ?1910 ?37% COMMENT ----- Patient's name and date of were verified by the welfare director before the exam IMPRESSION ----- 1. Single [...] No sonographic markers for aneuploidy noted. Suboptimal: FPC, hands, feet, left arm 4. Amniotic fluid [...] Pat. Name:Brady MONTESINOS Date:07/25/2024 3:47pm Pat. NO: [id number] :DAWSON BAIG MD Site:Kathieographer:Jazmín Vuong RDMS :2005Age:19 ----- INDICATION ----- Anatomy Survey CODING ----- Diagnoses Z3A.31: Weeks of gestation Z36.3: Encounter for screening formalformations Procedures 97576: Ultrasound, uterus, real time withimage documentation, and maternal evaluation plus detailed anatomic examination,transabdominal approach HISTORY ----- OB History 1. Para 0 MATERNAL ASSESSMENT ----- Physical Exam Weight 69 kg. BMI 27.10 kg/m?? METHOD ----- Transabdominal ultrasound examination ----- Zazueta . Number of fetuses: 1 DATING ----- Method of dating:based on stated JALEN GA by prior w + 0 d JALEN by prior [...] 3 lb 11 oz EFW by Hadlock ([id number]) Head / Face / Neck Biometry: Journalism Intern 3.7 mm CM 3.9 mm <1%Nicoalyssaides Outer [...] 4-chamber view. RVOT view. LVOT view. 3-vesselview. 9-vqfqoq-nllnrww view. Situs. Aortic arch view. Ductal arch [...] and date of were verified by the welfare director beforethe exam IMPRESSION ----- 1. Single living fetus with a gestational age of 31w 0d based on thereported clinical dates. 2. Current growth parameters are consistent with the stated EDC. The fetusis appropriate for gestational age in size at the 37% (1674 g). 3. Detailed anatomic survey is unremarkable. No gross structuralabnormalities noted. No sonographic markers for aneuploidy noted. Suboptimal: FPC, hands, feet, left arm 4. Amniotic fluid volume is normal for gestational age. 5. The cervical length is within normal range for gestational age. 6.Placenta is posterior . No previa/not low-lying. The placental cordinsertion appears normal. Recommendations: - Further ultrasounds based on clinical indication. Thank you for allowing us to participate in the care of this patient. Dawson Baig MD US ORDERABLES documented in this encounter Visit Diagnoses Diagnosis Short cervix affecting Cervical shortening, unspecified as to episode of care or not applicable documented in this encounter
--- OUTSIDE RECORDS SUMMARY | 2024-09-22 02:00 | XMS_ITS | Encounter Summary ---
Author Organization [facility] Healthcare Address [address] [place] [address] Care Team Providers Care Access Developer Name Role Phone Unavailable Primary Care Provider Unavailabl e Encounter Details Date Type Department Care Team (Late st Contact Info) Description 07/24/2009 8:05 AM TEXTILE BAG SEWER - 07/24/2009 12:00 PM TEXTILE BAG SEWER Hospital Encounter [facility] Johnnie Negron MD [address] [address] Deirdre Phillips MD [address] [place] [address] [address] Convulsions (HCC); Viral infection in conditions classified elsewhere and of unspecified site; Chronic sinusitis Social History Tobacco Use Types Packs/Day Years Used Date Smoking Tobacco: Never Assessed Comments Unknown Sex and Gender Information Value Date Recorded Sex Assigned at Not on file Legal Sex Female 4:21 PM TEXTILE BAG SEWER Gender Identity Not on file Sexual Orientation Not on file documented as of this encounter Plan of Treatment Not on file documented as of this encounter Visit Diagnoses Diagnosis Convulsions (HCC) Other convulsions Viral infection in conditions classified elsewhere and of unspecified site Chronic sinusitis Unspecified sinusitis (chronic) documented in this encounter
--- OUTSIDE RECORDS SUMMARY | 2024-09-22 02:00 | XMS_ITS | Encounter Summary ---
Author Organization [facility] Facility Care Team Providers Care Pill Maker Name Role Phone Unavailable Primary Care Provider Unavailabl e Encounter Details Date Type Department Care Team (Late st Contact Info) Description 11/12/2015 6:42 PM HAND FLATWORK FINISHER - 11/14/2015 6:04 PM HAND FLATWORK FINISHER Hospital Encounter [facility] CL[facility]CON[facility] Kylah Ragland MD 1 [facility] [address] [place] [id number] Moderate persistent asthma with status asthmaticus; Other viral agents as the cause of diseases classified elsewhere; Unspecified enterovirus as the cause of diseases classified elsewhere Social History Tobacco Use Types Packs/Day Years Used Date Smoking Tobacco: Never Assessed Comments Unknown Sex and Gender Information Value Date Recorded Sex Assigned at Not on file Legal Sex Female 4:21 PM HAND FLATWORK FINISHER Gender Identity Not on file Sexual Orientation Not on file documented as of this encounter Last Filed Vital Signs Vital Sign Reading Time Taken Comments Blood Pressure 123/65 11/14/2015 4:28 PM HAND FLATWORK FINISHER Pulse 104 11/14/2015 4:28 PM HAND FLATWORK FINISHER Temperature - - Respiratory Rate - - Oxygen Saturation 97% 11/14/2015 4:28 PM HAND FLATWORK FINISHER Inhaled Oxygen Concentration - - Weight 44.7 kg (98 lb 8.7 oz) 11/12/2015 7:46 PM HAND FLATWORK FINISHER Height - - Body Mass Index - - documented in this encounter Plan of Treatment Not on file documented as of this encounter Procedures Procedure Name Priority Date/Time Associated Diagnosis Comments DISCHARGE LABORATORY CUMULATIVE REPORT 11/14/2015 URINE MICROSCOPY Routine 11/13/2015 12:0 1 PM HAND FLATWORK FINISHER URINALYSIS Routine 11/13/2015 12:01 PM HAND FLATWORK FINISHER BLOOD GAS, CAPILLARY Routine 11/13/2015 3:37 AM HAND FLATWORK FINISHER RESPIRATORY PATHOGEN MULTIPLEX PCR, CDR Routine 11/12/2015 7:23 PM HAND FLATWORK FINISHER ALL MICROBIOLOGY REPORT SECTION Routine 11/12/2015 12:00 AM HAND FLATWORK FINISHER documented in this encounter Results * DISCHARGE LABORATORY CUMULATIVE REPORT (11/14/2015) Narrative 11/14/2015 Ordered by an unspecified provider. Result [facility] Provider LAB BLOOD ORDERABLES Ivania l Result * Urinalysis (11/13/2015 12:01 PM HAND FLATWORK FINISHER) Color, ur Yellow HISTORICAL RESULTS Clarity, ur Clear Clear HISTORIC AL RESULTS Specific gravity, ur 1.010 1.008 - 1.022 HISTORICAL RESULTS pH, ur 5.5 HISTORICAL RESULTS Protein, ur Negative Negative HISTORIC AL RESULTS Glucose, ur Negative Negative HISTORIC AL RESULTS Ketones, ur Negative Negative HISTORIC AL RESULTS Bilirubin, ur Negative Negative HISTOR ICAL RESULTS U Blood Negative Negative HISTORICAL RESULTS Urobilinogen, quant, ur 0.2 Abhijit Units/dl HISTORICAL RESULTS Nitrites, ur Negative Negative HISTORI FOSTER RESULTS Leukocyte esterase, ur Negative Negative HISTORICAL RESULTS Urine 11/13/2015 12:0 1 PM HAND FLATWORK FINISHER Result [facility] Provider LAB BLOOD ORDERABLES Ivania l Result HISTORICAL RESULTS * Urine microscopy (11/13/2015 12:01 PM HAND FLATWORK FINISHER) WBC, ur None Seen None Seen HISTORICAL RESULTS RBC, ur None Seen None Seen HISTORICAL RESULTS Epithelial cells, renal, ur None Seen None Seen HISTORICAL RESULTS Epithelial cells, squamous, ur < 5/HPF HISTORICAL RESULTS Urine 11/13/2015 12:0 1 PM HAND FLATWORK FINISHER Result [facility] Provider LAB BLOOD ORDERABLES Ivania l Result Performing Organization Address [facility] Co de Phone Number HISTORICAL RESULTS * Blood gas, capillary (11/13/2015 3:37 AM HAND FLATWORK FINISHER) pH, cap 7.41 HISTORICAL RESULTS PCO2, cap 38 mm Hg HISTORICAL RESULTS PO2, cap 63 mm Hg HISTORICAL RESULTS Comment: Interpretive Data No reference ranges established for capillary specimens. Arterial reference ranges (age: >1 day): ?pH = 7.35-7.45 ?pCO2 = 32-48 mmHg ?pO2 = 80-110 mmHg ?Total CO2 = 20-30 mmol/L Current interpretive data was last revised on 2013. CO2, cap, calc 25 mmol/L HISTO RICAL RESULTS BE, cap -0.1 mmol/L HISTORICAL RESULTS O2 sat, cap 92.5 % HISTORIC AL RESULTS Capillary blood 11/13/2015 3 :37 AM HAND FLATWORK FINISHER Historical Provider LAB BLOOD ORDERABLES Ivania zimmer Result Performing Organization Address [facility] Co de Phone Number HISTORICAL RESULTS * Respiratory Pathogen Multiplex PCR (11/12/2015 7:23 PM HAND FLATWORK FINISHER) Nasopharyngeal (Unknown) 11/12/2015 7:23 PM HAND FLATWORK FINISHER 11/12/2015 8:13 PM HAND FLATWORK FINISHER Impressions HISTORICAL RESULTS - 11/12/2015 10:10 PM HAND FLATWORK FINISHER [employer] (formerly known [employer] FilmArray Respiratory Panel (RP) assay is a multiplexed nucleic acid test capable of simultaneous qualitative detection and identification of multiple respiratory viral and bacterial nucleic acids. ??The following bacteria, viruses and virus subtypes can be identified using the FilmArray RP assay: Bordetella pertussis, Chlamydophila pneumoniae, Mycoplasma pneumoniae, Adenovirus, Coronavirus HKU1, Coronavirus NL63, Coronavirus 229E, Coronavirus OC43, Influenza A, Influenza A subtype H1, Influenza A subtype H3, Influenza A subtype 2009 H1, Influenza B, Metapneumovirus, Parainfluenza 1, Parainfluenza 2, Parainfluenza 3, Parainfluenza 4, RSV, Rhinovirus/Enterovirus. Due to the genetic similarity between human Rhinovirus and Enterovirus, the FilmArray RP assay cannot reliably differentiate them. Coronavirus OC43 may cross-react with some isolates of Coronavirus HKU1. ??A dual positive result may be due to cross-reactivity or may indicate a co-infection. A version of the FilmArray RP assay updated to include an additional adenovirus assay was approved by the FDA in October,. ??The updated version has demonstrated improved detection of adenoviruses relative to the previous version. ??All of the other assays for the 20 targets are unchanged. ?? The detection and identification of specific viral and bacterial nucleic acids from individuals exhibiting signs and symptoms of a respiratory infection aids in the diagnosis of respiratory infection if used in conjunction with other clinical and epidemiological information. ??The results of this test should not be used as the sole basis for diagnosis, treatment, or other management decisions. ??Negative results in the setting of a respiratory illness may be due to infection with pathogens that are not detected by this test. ??Positive results do not rule out infection/co- infection with other organisms. ??The agent(s) detected by the FilmArray RP may not be the definite cause of disease. ??Additional testing (lab, imaging, etc) may be necessary when evaluating a patient with possible respiratory tract infection. The FilmArray RP assay is FDA cleared for CIRCUIT BOARD INSPECTOR swabs. ??Additional sample types have been validated according to CLIA regulations. ??The performance characteristics of this assay have been determined by [facility]. Current interpretive data was last revised on 2013. Narrative HISTORICAL RESULTS - 11/12/2015 10:10 PM HAND FLATWORK FINISHER Respiratory Pathogen nucleic acids DETECTED (POSITIVE) for the following: Rhinovirus/Enterovirus us Historical Provider LAB MICROBIOLOGY - GENERA L ORDERABLES Final Result HISTORICAL RESULTS * All Microbiology Report Section (11/12/2015 12:00 AM HAND FLATWORK FINISHER) 11/12/2015 Narrative HISTORICAL RESULTS - 11/13/2015 12:10 AM HAND FLATWORK FINISHER ?[facility] ? Clinical Laboratories ?[address] ?[place], [place] [address] ? Patient Name: ? MICHELE MONTESINOS ? Med Rec Number: ? [id number] ? Fin Number: ? [id number] ? Date: ? 2005 ? Sex/Age: ?Female 10 years ? Admit Date: ? 11/12/2015 ? Discharge Date: ? Doctor: ? Physician , Outpatient ? Facility: ? [facility] ? Location: ? 7E 7E12 B ? * Abnormal ??C Critical ??f Footnote ??^ Corrected ??L Low ??H High ?i Interp Data ??@ Ref Lab ? Chart Type: Cumulative ?* * * * MICROBIOLOGY - VIROLOGY * * * * ?PROCEDURE: Respiratory Pathogen Multiplex PCR ? SOURCE: Nasopharyngeal ? COLLECTED: 11/12/15 ??1923 ?BODY SITE: ? STARTED: 11/12/15 ??2013 ? FREE TEXT SOURCE: ? FINAL REPORT ? REPORTED: 11/12/152209 ? Respiratory Pathogen nucleic acids DETECTED (POSITIVE) for the ? following: ? Rhinovirus/Enterovirus ?* * * ??Interpretive Results ??* * * ? (1)[employer] ? FilmArray Respiratory Panel (RP) assay is a multiplexed nucleic ? acid test capable of simultaneous qualitative detection and ? identification of multiple respiratory viral and bacterial ? nucleic acids. ??The following bacteria, viruses and virus ? subtypes can be identified using the FilmArray RP assay: ? Bordetella pertussis, Chlamydophila pneumoniae, Mycoplasma ? pneumoniae, Adenovirus, Coronavirus HKU1, Coronavirus NL63, ? Coronavirus 229E, Coronavirus OC43, Influenza A, Influenza A ? subtype H1, Influenza A subtype H3, Influenza A subtype 2009 H1, ? Influenza B, Metapneumovirus, Parainfluenza 1, Parainfluenza 2, ? Parainfluenza 3, Parainfluenza 4, RSV, Rhinovirus/Enterovirus. ? Due to the genetic similarity between human Rhinovirus and ? Enterovirus, the FilmArray RP assay cannot reliably ? differentiate them. Coronavirus OC43 may cross-react with some ? isolates of Coronavirus HKU1. ??A dual positive result may be due ? to cross-reactivity or may indicate a co-infection.A version of ? the FilmArray RP assay updated to include an additional ? adenovirus assay was approved by the FDA in October,. ??The ? updated version has demonstrated improved detection of ? adenoviruses relative to the previous version. ??All of the other ? assays for the 20 targets are unchanged. ??The detection and ? identification of specific viral and bacterial nucleic acids ? from individuals exhibiting signs and symptoms of a respiratory ? infection aids in the diagnosis of respiratory infection if used ? in conjunction with other clinical and epidemiological ? information. ??The results of this test should not be used as the ? sole basis for diagnosis, treatment, or other management ? decisions. ??Negative results in the setting of a respiratory ? illness may be due to infection with pathogens that are not ? detected by this test. ??Positive results do not rule out ? infection/co-infection with other organisms. ??The agent(s) ? detected by the FilmArray RP may not be the definite cause of ? disease. ??Additional testing (lab, imaging, etc) may be ? necessary when evaluating a patient with possible respiratory ? tract infection.The FilmArray RP assay is FDA cleared for CIRCUIT BOARD INSPECTOR ? swabs. ??Additional sample types have been validated according to ? CLIA regulations. ??The performance characteristics of this assay ? have been determined by [facility] ? Lab.Current interpretive data was last revised on 2013. ? us Historical Provider LAB MICROBIOLOGY - GENERA L ORDERABLES Final Result HISTORICAL RESULTS documented in this encounter Visit Diagnoses Diagnosis Moderate persistent asthma with status asthmaticus Unspecified asthma, with status asthmaticus Other viral agents as the cause of diseases classified elsewhere Unspecified enterovirus as the cause of diseases classified elsewhere documented in this encounter
--- OUTSIDE RECORDS SUMMARY | 2024-09-22 02:00 | XMS_ITS | Encounter Summary ---
Author Organization [facility] Healthcare Address [address] [place] [address] Care Team Providers Care Instructor Extension Work Name Role Phone Unavailable Primary Care Provider Unavailabl e Encounter Details Date Type Department Care Team (Late st Contact Info) Description 11/21/2009 11:45 AM SENIOR TECHNICAL BUSINESS ANALYST - 11/22/2009 7:20 PM SENIOR TECHNICAL BUSINESS ANALYST Hospital Encounter [facility] Susy Prajapati MD [address] [place] [address] Deirdre Phillips MD [address] [place] [address] [address] Asthma with exacerbation; Viral infection in conditions classified elsewhere and of unspecified site Social History Tobacco Use Types Packs/Day Years Used Date Smoking Tobacco: Never Assessed Comments Unknown Sex and Gender Information Value Date Recorded Sex Assigned at Not on file Legal Sex Female 4:21 PM SENIOR TECHNICAL BUSINESS ANALYST Gender Identity Not on file Sexual Orientation Not on file documented as of this encounter Plan of Treatment Not on file documented as of this encounter Visit Diagnoses Diagnosis Asthma with exacerbation Unspecified asthma, with exacerbation Viral infection in conditions classified elsewhere and of unspecified site documented in this encounter
--- OUTSIDE RECORDS SUMMARY | 2024-09-22 02:00 | XMS_ITS | Encounter Summary ---
Author Organization [facility] Healthcare Address [address] [place] [address] Care Team Providers Care Lab Tech Name Role Phone Unavailable Primary Care Provider Unavailabl e Encounter Details Date Type Department Care Team (Late st Contact Info) Description 12/12/2006 1:41 PM CDT - 12/12/2006 6:30 PM CDT Hospital Encounter [facility] CLINCONJerry Hernández, Deirdre Driver MD [address] [place] [id number] Social History Tobacco Use Types Packs/Day Years Used Date Smoking Tobacco: Never Assessed Comments Unknown Sex and Gender Information Value Date Recorded Sex Assigned at Not on file Legal Sex Female 4:21 PM RECEIVING WEIGHER Gender Identity Not on file Sexual Orientation Not on file documented as of this encounter Plan of Treatment Not on file documented as of this encounter Visit Diagnoses Not on filedocumented in this encounter
--- OUTSIDE RECORDS SUMMARY | 2024-09-22 02:00 | XMS_ITS | Encounter Summary ---
Author Organization [facility] Healthcare Address [address] [place] [address] Care Team Providers Care Global Coordinator Name Role Phone Unavailable Primary Care Provider Unavailabl e Encounter Details Date Type Department Care Team (Late st Contact Info) Description 07/01/2016 9:26 AM CDT - 07/01/2016 11:59 PM CDT Hospital Encounter [facility] Deirdre Oneil MD [address] [place] [address] [address] Kendell Smith, LUZ MARIA [address] [place] [address] Other specified injuries of left wrist, hand and finger(s), initial encounter; Exposure to other specified factors, initial encounter; Activity involving soccer; Unspecified place or not applicable; Other specified soft tissue disorders Social History Tobacco Use Types Packs/Day Years Used Date Smoking Tobacco: Never Assessed Comments Unknown Sex and Gender Information Value Date Recorded Sex Assigned at Not on file Legal Sex Female 4:21 PM SHEET HANGER Gender Identity Not on file Sexual Orientation Not on file documented as of this encounter Plan of Treatment Not on file documented as of this encounter Procedures Procedure Name Priority Date/Time Associated Diagnosis Comments HAND RADIOGRAPHY Routine 07/01/2016 9:48 AM CDT documented in this encounter Results * HAND RADIOGRAPHY (07/01/2016 9:48 AM CDT) Anatomical Region Laterality Modality N/A Radiographic Letty ging 07/01/2016 9:48 AM CDT Narrative 07/01/2016 3:37 PM CDT XR Hand L ?[id number] ??Acc#: ??[id number] DATE OF EXAM: ??Jul 01 2016 CLINICAL HISTORY: Soccer injury on Monday. ??Pain at base of left 3rd digit. RESULT: Three views of left hand demonstrate no fracture, dislocation or bone destruction. ??Growth plates are not fused. ??Proximal 3rd finger soft tissue swelling is suggested. IMPRESSION: 1. ??NO BONY ABNORMALITY OF LEFT HAND. 2. ??MILD 3RD FINGER SOFT TISSUE SWELLING. Interpreting Physician: ??DR LLUVIA PURVIS M.D. ??Read on: ??Jul 01 2016 9:50A Transcribed by: ??deven ??On: Jul 01 2016 11:56A Approved Electronically by: ??YANIV Guerra, DR TEIXEIRA ??on: ??Jul 01 2016 3:37P Attending: ??KENDELL SMITH Requesting: ??KENDELL SMITH Requesting Fax: ??[phone] Attending Fax: ??[phone] Attending ID: ??[id number] Requesting ID: ??[id number] Report To 1 ID: ??[id number] Report To 1 Name: ??KENDELL SMITH Report To 1 FAX: ??[phone] NextGen Order #: Procedure Note Provider, MD Sailaja - 01/23/2017 XR Hand L [id number] Acc#: [id number] DATE OF EXAM: Jul 01 2016 CLINICAL HISTORY: Soccer injury on Monday. Pain at base of left 3rd digit. RESULT: Three views of left hand demonstrate no fracture, dislocation or bonedestruction. Growth plates are not fused. Proximal 3rd finger softtissue swelling is suggested. IMPRESSION: 1. NO BONY ABNORMALITY OF LEFT HAND. 2. MILD 3RD FINGER SOFT TISSUE SWELLING. Interpreting Physician: DR LLUVIA PURVIS M.D. Read on: Jul 01 20169:50A Transcribed by: deven On: Jul 01 2016 11:56A Approved Electronically by: DR LLUVIA PURVIS M.D. on: Jul 01 20163:37P Attending: KENDELL SMITH Requesting: KENDELL SMITH Requesting Attending Attending ID: [id number] Requesting ID: [id number] Report To 1 ID: [id number] Report To 1 Name: KENDELL SMITH Report To 1 FAX: [phone] NextGen Order #: Historical Provider MD CASH XR PROCEDURES Final R esult documented in this encounter Visit Diagnoses Diagnosis Other specified injuries of left wrist, hand and finger(s), initial encounter Exposure to other specified factors, initial encounter Activity involving soccer Unspecified place or not applicable Other specified soft tissue disorders documented in this encounter
--- OUTSIDE RECORDS SUMMARY | 2024-09-22 02:00 | XMS_ITS | Referral Summary ---
Author Organization [facility] Address [address] [place] [address] Care Team Providers Care Paper Guillotine Operator Name Role Phone Unknown, Notinfile Primary Care [...] SARS-CoV-2 Monovalent Vaccination (12+ Yrs) PURPLE 07/21/2021,05/26/2021 Social History Tobacco Use Types Packs/Day Years Used Date Smoking Tobacco: Never Assessed Comments Unknown Sex and Gender Information Value Date Recorded Sex Assigned at Not on file Legal Sex Female 4:21 PM SUBSTITUTE SCHOOL NURSE Gender Identity Not on file Sexual Orientation Not on file Last Filed Vital Signs Vital Sign Reading Time Taken Comments Blood Pressure 113/74 11/23/2022 2:18 PM SUBSTITUTE SCHO[employer] NURSE Pulse 87 11/23/2022 2:18 PM SUBSTITUTE SCHO[employer] NURSE Temperature 36.5 ??C (97.7 ??F) 11/23/2022 2:18 PM CS T Respiratory Rate 16 11/23/2022 2:18 PM SUBSTITUTE SCHO[employer] NURSE Oxygen Saturation 97% 11/23/2022 2:18 PM SUBSTITUTE SCHOOL NURSE Inhaled Oxygen Concentration - - Weight 61.7 kg (136 lb) 11/23/2022 2:18 PM SUBSTITUTE SCHOOL NURSE Height 160 cm (5' 3 ) 11/23/2022 2:18 PM SUBSTITUTE SCHOOL NURSE Body Mass Index 24.09 11/23/2022 2:18 PM SUBSTITUTE SCHOOL NURSE Plan of Treatment Not on file Insurance [employer] [facility] HMO Care Teams Paper Guillotine Operator Relationship Specialty Start Date End Date Unknown, Notinfile PCP - General 11/23/22
--- OUTSIDE RECORDS SUMMARY | 2024-09-22 02:00 | XMS_ITS | Encounter Summary ---
Author Organization [facility] Healthcare Address [address] [place] [address] Care Team Providers Care Clarifier Operator Helper Name Role Phone Unavailable Primary Care Provider Unavailabl e Encounter Details Date Type Department Care Team (Late st Contact Info) Description 04/25/2008 6:17 PM CDT - 04/25/2008 7:25 PM CDT Hospital Encounter [facility] Aung Hazel, Deirdre Driver MD [address] [place] [address] [address] Social History Tobacco Use Types Packs/Day Years Used Date Smoking Tobacco: Never Assessed Comments Unknown Sex and Gender Information Value Date Recorded Sex Assigned at Not on file Legal Sex Female 4:21 PM FIELD HAULER Gender Identity Not on file Sexual Orientation Not on file documented as of this encounter Plan of Treatment Not on file documented as of this encounter Visit Diagnoses Not on filedocumented in this encounter
--- OUTSIDE RECORDS SUMMARY | 2024-09-22 02:00 | XMS_ITS | Encounter Summary ---
Author Organization [facility] Healthcare Address [address] [place] [address] Care Team Providers Care Nursery Rn Name Role Phone Unknown, Latisha Primary Care Provider Unavail able Encounter Details Date Type Department Care Team (Late st Contact Info) Description 08/22/2023 Patient Self-Triage [facility] HealthCare/ Physicians [address] [place] [address] Sasha, [facility] Provider [address] [place], [place] [id number] Social History Tobacco Use Types Packs/Day Years Used Date Smoking Tobacco: Never Assessed Comments Unknown Sex and Gender Information Value Date Recorded Sex Assigned at Not on file Legal Sex Female 4:21 PM PUBLIC HEALTH PROGRAM MANAGER Gender Identity Not on file Sexual Orientation Not on file documented as of this encounter Plan of Treatment Not on file documented as of this encounter Visit Diagnoses Not on filedocumented in this encounter Care Teams Nursery Rn Relationship Specialty Start Date End Date Unknown, Latisha PCP - General 11/23/22 documented as of this encounter
--- OUTSIDE RECORDS SUMMARY | 2024-09-22 02:00 | XMS_ITS | Encounter Summary ---
Author Organization [facility] Care Team Providers Care Electric Arc Furnace Operator Name Role Phone Unavailable Primary Care Provider Unavailabl e Encounter Details Date Type Department Care Team (Latest Contact Info) Description 08/13/2011 3:14 PM NETWORK SUPPORT ENGINEER - 08/13/2011 6:48 PM NETWORK SUPPORT ENGINEER Hospital Encounter [facility] Syncope and collapse Social History Tobacco Use Types Packs/Day Years Used Date Smoking Tobacco: Never Assessed Comments Unknown Sex and Gender Information Value Date Recorded Sex Assigned at Not on file Legal Sex Female 4:21 PM NETWORK SUPPORT ENGINEER Gender Identity Not on file Sexual Orientation Not on file documented as of this encounter Plan of Treatment Not on file documented as of this encounter Visit Diagnoses Diagnosis Syncope and collapse documented in this encounter
--- OUTSIDE RECORDS SUMMARY | 2024-09-22 02:00 | XMS_ITS | Encounter Summary ---
Author Organization [facility] Healthcare Address [address] [place] [address] Care Team Providers Care Key Cutter Name Role Phone Unavailable Primary Care Provider Unavailabl e Encounter Details Date Type Department Care Team (Late st Contact Info) Description 10/29/2008 8:28 PM CLOTHES PRESSER - 10/29/2008 10:04 PM CLOTHES PRESSER Hospital Encounter [facility] Sandeep Rolle MD [address] [place] [address] Deirdre Phillips MD [address] [place] [address] Acute bronchiolitis due to other specified organisms Social History Tobacco Use Types Packs/Day Years Used Date Smoking Tobacco: Never Assessed Comments Unknown Sex and Gender Information Value Date Recorded Sex Assigned at Not on file Legal Sex Female 4:21 PM CLOTHES PRESSER Gender Identity Not on file Sexual Orientation Not on file documented as of this encounter Plan of Treatment Not on file documented as of this encounter Visit Diagnoses Diagnosis Acute bronchiolitis due to other specified organisms documented in this encounter
--- OUTSIDE RECORDS SUMMARY | 2024-09-22 02:00 | XMS_ITS | Encounter Summary ---
Author Organization [facility] Healthcare Address [address] [place] [address] Care Team Providers Care Presser All Around Name Role Phone Unavailable Primary Care Provider Unavailabl e Encounter Details Date Type Department Care Team (Late st Contact Info) Description 05/23/2016 8:46 AM CDT - 05/23/2016 11:38 AM CDT Hospital Encounter [facility] Shahid Infante MD [address] [place] [id number] Acute bronchitis; Uncomplicated asthma Social History Tobacco Use Types Packs/Day Years Used Date Smoking Tobacco: Never Assessed Comments Unknown Sex and Gender Information Value Date Recorded Sex Assigned at Not on file Legal Sex Female 4:21 PM REIMBURSEMENT SPEC Gender Identity Not on file Sexual Orientation Not on file documented as of this encounter Plan of Treatment Not on file documented as of this encounter Visit Diagnoses Diagnosis Acute bronchitis Uncomplicated asthma documented in this encounter
--- OUTSIDE RECORDS SUMMARY | 2024-09-22 02:00 | XMS_ITS | Encounter Summary ---
Author Organization [facility] Facility Care Team Providers Care Camp Program Director Name Role Phone Unavailable Primary Care Provider Unavailabl e Encounter Details Date Type Department Care Team (Late st Contact Info) Description 02/10/2012 10:29 AM CDT - 02/10/2012 11:59 PM CDT Hospital Encounter [facility] Asthma Social History Tobacco Use Types Packs/Day Years Used Date Smoking Tobacco: Never Assessed Comments Unknown Sex and Gender Information Value Date Recorded Sex Assigned at Not on file Legal Sex Female 4:21 PM CHAIN OFFBEARER Gender Identity Not on file Sexual Orientation Not on file documented as of this encounter Plan of Treatment Not on file documented as of this encounter Visit Diagnoses Diagnosis Asthma Unspecified asthma documented in this encounter
--- OUTSIDE RECORDS SUMMARY | 2024-09-22 02:00 | XMS_ITS | Encounter Summary ---
Author Organization [facility] Healthcare Address [address] [place] [address] Care Team Providers Care Software Release Manager Name Role Phone Unavailable Primary Care Provider Unavailabl e Encounter Details Date Type Department Care Team (Late st Contact Info) Description 04/05/2008 10:40 AM CDT - 04/05/2008 11:59 PM CDT Hospital Encounter [facility] Deirdre Oneil MD [address] [place] [address] [address] Social History Tobacco Use Types Packs/Day Years Used Date Smoking Tobacco: Never Assessed Comments Unknown Sex and Gender Information Value Date Recorded Sex Assigned at Not on file Legal Sex Female 4:21 PM ROOF FIXER Gender Identity Not on file Sexual Orientation Not on file documented as of this encounter Plan of Treatment Not on file documented as of this encounter Visit Diagnoses Not on filedocumented in this encounter
--- OUTSIDE RECORDS SUMMARY | 2024-09-22 02:00 | XMS_ITS | Encounter Summary ---
Author Organization [facility] Healthcare Address [address] [place] [address] Care Team Providers Care Editor Farm Journal Name Role Phone Deirdre Phillips MD Primary Care Provider + Encounter Details Date Type Department Care Team (Late st Contact Info) Description 11/10/2016 10:33 AM HEAD SAMPLER - 11/10/2016 11:59 PM HEAD SAMPLER Hospital Encounter [facility] Deirdre Phillips MD [address] [place] [address] Discharge Disposition: Discharge to home or self care Social History Tobacco Use Types Packs/Day Years Used Date Smoking Tobacco: Never Assessed Comments Unknown Sex and Gender Information Value Date Recorded Sex Assigned at Not on file Legal Sex Female 4:21 PM HEAD SAMPLER Gender Identity Not on file Sexual Orientation Not on file documented as of this encounter Discharge Disposition Disposition Code Departure Means Destination Discharge to home or self care documented in this encounter Plan of Treatment Not on file documented as of this encounter Visit Diagnoses Not on filedocumented in this encounter Care Teams Editor Farm Journal Relationship Specialty Start Date End Date Deirdre Phillips MD PCP - General 11/10/16 11/22/22 documented as of this encounter
--- OUTSIDE RECORDS SUMMARY | 2024-09-22 02:00 | XMS_ITS | Encounter Summary ---
Author Organization [facility] Address [address] [place] [address] Care Team Providers Care Police Reserves Commander Name Role Phone Unavailable Primary Care Provider Unavailabl e Encounter Details Date Type Department Care Team (Late st Contact Info) Description 07/30/2024 External Device Data [facility] ABSTRACTION Provider, Abstract NO ADDRESS ON FILE Social History Tobacco Use Types Packs/Day Years [...]
--- OUTSIDE RECORDS SUMMARY | 2024-09-22 02:00 | XMS_ITS | Encounter Summary ---
Author Organization [facility] Healthcare Address [address] [place] [address] Care Team Providers Care Painting Technician Name Role Phone Unavailable Primary Care Provider Unavailabl e Encounter Details Date Type Department Care Team (Late st Contact Info) Description 11/11/2015 10:16 PM RETAIL PARTS PRO - 11/12/2015 12:43 AM RETAIL PARTS PRO Hospital Encounter [facility] Kushal Lizama MD [address] [facility] [address] [place] [address] Uncomplicated asthma; Other jail (current) drug therapy Social History Tobacco Use Types Packs/Day Years Used Date Smoking Tobacco: Never Assessed Comments Unknown Sex and Gender Information Value Date Recorded Sex Assigned at Not on file Legal Sex Female 4:21 PM RETAIL PARTS PRO Gender Identity Not on file Sexual Orientation Not on file documented as of this encounter Plan of Treatment Not on file documented as of this encounter Procedures Procedure Name Priority Date/Time Associated Diagnosis Comments XR CHEST PA LATERAL 2 VIEWS Routine 11/11/2015 10:58 PM RETAIL PARTS PRO documented in this encounter Results * XR Chest PA Lateral 2 View (11/11/2015 10:58 PM RETAIL PARTS PRO) Anatomical Region Laterality Modality Body, Chest N/A Radiographic Letty ging 11/11/2015 10:5 8 PM RETAIL PARTS PRO Narrative 11/12/2015 12:40 PM RETAIL PARTS PRO XR Chest 2 Views ?[id number] ??Acc#: ??[id number] DATE OF EXAM: ??Nov 11 2015 CLINICAL HISTORY: Cough. Asthma. RESULT: PA and lateral views of the chest correlated with the study dated 11/22/09 demonstrates a normal size heart. Lungs are clear. IMPRESSION: NO ACTIVE DISEASE. Interpreting Physician: ??JOEY RUSHING M.D. ??Read on: ??Nov 12 2015 12:22A Transcribed by: ??TXD ??On: Nov 12 2015 10:40A Approved Electronically by: ??JOEY RUSHING M.D. ??on: ??Nov 12 2015 12:40P Attending: ??KUSHAL ROSALES Requesting: ??KUSHAL ROSALES Requesting Fax: ??-- Attending Fax: ??-- Attending ID: ??[id number] Requesting ID: ??[id number] Report To 1 ID: ??[id number] Report To 1 Name: ??KUSHAL ROSALES Report To 1 FAX: ??-- NextGen Order #: Procedure Note Provider, MD Sailaja - 01/15/2017 XR Chest 2 Views [id number] Acc#: [id number] DATE OF EXAM: Nov 11 2015 CLINICAL HISTORY: Cough. Asthma. RESULT: PA and lateral views of the chest correlated with the study dated 11/22/09demonstrates a normal size heart. Lungs are clear. IMPRESSION: NO ACTIVE DISEASE. Interpreting Physician: JOEY RUSHING M.D. Read on: Nov 12 2015 12:22A Transcribed by: TXD On: Nov 12 2015 10:40A Approved Electronically by: JOEY RUSHING M.D. on: Nov 12 2015 12:40P Attending: KUSHAL ROSALES Requesting: KUSHAL ROSALES Requesting Fax: -- Attending Fax: -- Attending ID: [id number] Requesting ID: [id number] Report To 1 ID: [id number] Report To 1 Name: KUSHAL ROSALES Report To 1 FAX: -- NextGen Order #: Historical Provider IMBrisa XR PROCEDURES Final R esult documented in this encounter Visit Diagnoses Diagnosis Uncomplicated asthma Other jail (current) drug therapy documented in this encounter
--- OUTSIDE RECORDS SUMMARY | 2024-09-22 02:00 | XMS_ITS | Encounter Summary ---
Author Organization [facility] Address [address] [facility] [address] [place], [place] [id number] Care Team Providers Care Mineral Engineer Name Role Phone Unknown, Notinfile Primary Care Provider Unavail able Reason for Visit * Reason Comments Cough Deep cough SOB onset Monday has a h/o asthma has an inhaler but out of neb meds Encounter Details Date Type Department Care Team (Late st Contact Info) Description 11/23/2022 2:15 PM INK TECHNICIAN Office Visit [facility] [address] [id number] [place] [address] [place] [address] [address] [place] [address] Mild intermittent asthma with exacerbation (Primary Dx) Social History Tobacco Use Types Packs/Day Years Used Date Smoking Tobacco: Never Assessed Comments Unknown Sex and Gender Information Value Date Recorded Sex Assigned at Not on file Legal Sex Female 4:21 PM INK TECHNICIAN Gender Identity Not on file Sexual Orientation Not on file documented as of this encounter Last Filed Vital Signs Vital Sign Reading Time Taken Comments Blood Pressure 113/74 11/23/2022 2:18 PM INK TECHNICIAN Pulse 87 11/23/2022 2:18 PM INK TECHNICIAN Temperature 36.5 ??C (97.7 ??F) 11/23/2022 2:18 PM CS T Respiratory Rate 16 11/23/2022 2:18 PM INK TECHNICIAN Oxygen Saturation 97% 11/23/2022 2:18 PM INK TECHNICIAN Inhaled Oxygen Concentration - - Weight 61.7 kg (136 lb) 11/23/2022 2:18 PM INK TECHNICIAN Height 160 cm (5' 3 ) 11/23/2022 2:18 PM INK TECHNICIAN Body Mass Index 24.09 11/23/2022 2:18 PM INK TECHNICIAN Body Mass Index Percentile 75.29% 11/23/2022 2:1 8 PM INK TECHNICIAN Growth Chart: [facility] (Girls, 2- 20 Years) documented in this encounter Patient Instructions * Patient Instructions* Eliza Giordano NP - 11/23/2022 2:15 PM INK TECHNICIAN Avoid irritants such as cigarette smoke, pollen, dust, etc as this will aggravate cough. Suck on cough drops or hard candies to soothe a dry or sore throat. Cough drops won't stop your cough, but they may make your throat feel better. Over the counter loratadine (Claritin) or cetirizine (Zyrtec) to reduce secretions. Mucinex to thin secretions Breathe moist air from a humidifier, a hot shower, or a sink filled with hot water. The heat and moisture can help keep mucus in your airways moist so you can cough it out easily. Use nonprescription medicine, such as acetaminophen, ibuprofen, or aspirin, to relieve fever and body aches. Don't give aspirin to anyone younger than age 20. Rest more than usual. Drink plenty of fluids so that you do not become dehydrated and to keep mucous thin. Use an cthm-gmk-qsercpp cough medicine such as Delsym or Robitussin. (Cough medicines may not be safe for young children or for people who have certain health problems.) Cough suppressants may help you to stop coughing. Expectorants, such as Mucinex, can help you bring up mucus when you cough. Follow up with primary care physician in 1 week, or sooner if symptoms worsen. GO TO ER WITH ANY WORSENING OF SYMPTOMS INCLUDING, BUT NOT LIMITED TO: SUDDEN HIGH FEVER, DIFFICULTY BREATHING OR CATCHING YOUR BREATH, OR SHORTNESS OF BREATH. TECHNICIAN * Attachments The following attachments cannot be sent through Care Everywhere. * Asthma in Children (Esol Teacher) ([place]ian) documented in this encounter Ordered Prescriptions Prescription Sig Dispense Quantity Refills Last Filled Start Date End Date albuterol HFA (PROVENTIL HFA,VENTOLIN HFA,PROAIR HFA) 90 mcg/actuation inhalerIndications :Mild intermittent asthma with exacerbation Inhale 2 puffs every 6 (six) hours as needed for wheezing or shortness of breath 1 each 11/23/2022 predniSONE (DELTASONE) 20 mg tabletIndications: Mild intermittent asthma with exacerbation Take 2 tablets (40 mg) by mouth daily for 5 days 10 tablet 11/23/2022 3 documented in this encounter Progress Notes * Eliza Giordano, EMBOSSED OR IMPRESSED LETTERING PAINTER - 11/23/2022 2:15 PM CST Images from the original note were not included. Patient ID: Tova Montesinos is a 17 y.o. female followed by Unknown, Notinfile Chief Complaint Patient presents with Cough Deep cough SOB onset Monday has a h/o asthma has an inhaler but out of neb meds Patient presents to the clinic with reports of cough, shortness of breath with exertion, and chest tightness for 3 days Patient does have asthma and uses an albuterol inhaler. Denies fevers, chest pain, difficulty breathing, body aches, vomiting, diarrhea. She has take delsym for her symptoms. Review of Systems Constitutional: Negative for chills, fatigue and fever. HENT: Negative for congestion, ear pain, postnasal drip, rhinorrhea and sore throat. Respiratory: Positive for cough, chest tightness, shortness of breath (with exertion) and wheezing. Cardiovascular: Negative for chest pain. Gastrointestinal: Negative for diarrhea, nausea and vomiting. Musculoskeletal: Negative for myalgias. Neurological: Negative for headaches. Vitals: 11/23/22 1418 BP: 113/74 BP Location: Left arm Patient Position: Sitting Pulse: 87 Resp: 16 Temp: 36.5 ??C (97.7 ??F) TempSrc: Oral SpO2: 97% Weight: 61.7 kg (136 lb) Height: 160 cm (5' 3 ) Physical Exam Vitals reviewed. Constitutional: General: She is not in acute distress. Appearance: She is well-developed. She is not ill-appearing. HENT: Right Ear: Tympanic membrane, ear canal and external ear normal. Tympanic membrane is not injected,erythematous or bulging. Left Ear: Tympanic membrane, ear canal and external ear normal. Tympanic membrane is not injected, erythematous or bulging. Nose: Congestion present. No rhinorrhea. Right Sinus: No maxillary sinus tenderness or frontal sinus tenderness. Left Sinus: No maxillary sinus tenderness or frontal sinus tenderness. Mouth/Throat: Lips: [place]. Mouth: Mucous membranes are moist. Pharynx: Uvula midline. No pharyngeal swelling, oropharyngeal exudate or posterior oropharyngeal erythema. Cardiovascular: Rate and Rhythm: Normal rate and regular rhythm. Pulmonary: Effort: Pulmonary effort is normal. No respiratory distress. Breath sounds: Decreased breath sounds present. No wheezing or rhonchi. Lymphadenopathy: Cervical: No cervical adenopathy. Skin: General: Skin is warm and dry. Neurological: Mental Status: She is alert and oriented to person, place, and time. Diagnoses and all orders for this visit: Mild intermittent asthma with exacerbation (Primary) - predniSONE (DELTASONE) 20 mg tablet; Take 2 tablets (40 mg) by mouth daily for 5 days - albuterol HFA (PROVENTIL HFA,VENTOLIN HFA,PROAIR HFA) 90 mcg/actuation inhaler; Inhale 2 puffs every 6 (six) hours as needed for wheezing or shortness of breath - Ambulatory referral to Family Practice; Future Orders Placed This Encounter Procedures Ambulatory referral to Family Practice Standing Status: Future Standing Expiration Date: 11/24/2023 Referral Priority: Routine Referral Type: Consultation Referral Reason: Specialty Services Required Referral Location: [facility] Referred to Provider: Marina Perdomo NP Requested Specialty: Family Medicine Number of Visits Requested: 1 Assessment/Plan -start daily steroids for the next 5 days to help with asthma exacerbation -called out new inhaler for patient -referral to primary care given Disposition Treatment plan including expectations, follow up, and return precautions discussed with patient/parent, verbalizes understanding. Medication dosage, use, and potential adverse reactions discussed with patient/parent. Advised to follow up with PCP if symptoms do not resolve as expected or sooner if condition worsens. Discussed Signs/symptoms warranting ER evaluation including worsening fever, increased shortness ofbreath, chest pain, severe N/V/D, or any other worrisome symptoms Patient and/or guardian was given an opportunity to ask questions, questions answered. Patient Education Avoid irritants such as cigarette smoke, pollen, dust, etc as this will aggravate cough. Suck on cough drops or hard candies to soothe a dry or sore throat. Cough drops won't stop your cough, but they may make your throat feel better. Over the counter loratadine (Claritin) or cetirizine (Zyrtec) to reduce secretions. Mucinex to thin secretions Breathe moist air from a humidifier, a hot shower, or a sink filled with hot water. The heat and moisture can help keep mucus in your airways moist so you can cough it out easily. Use nonprescription medicine, such as acetaminophen, ibuprofen, or aspirin, to relieve fever and body aches. Don't give aspirin to anyone younger than age 20. Rest more than usual. Drink plenty of fluids so that you do not become dehydrated and to keep mucous thin. Use an jria-reb-tqospty cough medicine such as Delsym or Robitussin. (Cough medicines may not be safe for young children or for people who have certain health problems.) Cough suppressants may help you to stop coughing. Expectorants, such as Mucinex, can help you bring up mucus when you cough. Follow up with primary care physician in 1 week, or sooner if symptoms worsen. GO TO ER WITH ANY WORSENING OF SYMPTOMS INCLUDING, BUT NOT LIMITED TO: SUDDEN HIGH FEVER, DIFFICULTY BREATHING OR CATCHING YOUR BREATH, OR SHORTNESS OF BREATH. Eliza Giordano NP TECHNICIAN documented in this encounter Plan of Treatment Not on file documented as of this encounter Visit Diagnoses Diagnosis Mild intermittent asthma with exacerbation- Primary Unspecified asthma, with exacerbation documented in this encounter Historical Medications * This list may reflect changes made after this encounter. Xulane 150-35 mcg/24 hr APPLY 1 PATCH AND LEAVE ON FOR 3 WEEKS, REMOVE FOR 1 WEEK. THEN START AGAIN 10/04/2022 added in this encounter Care Teams Mineral Engineer Relationship Specialty Start Date End Date Unknown, Notinfile PCP - General 11/23/22 documented as of this encounter
--- OUTSIDE RECORDS SUMMARY | 2024-09-22 02:00 | XMS_ITS | Encounter Summary ---
Author Organization [facility] Address [address] [place] [address] Care Team Providers Care Wine Bottle Inspector Name Role Phone Unavailable Primary Care Provider Unavailabl e Encounter Details Date Type Department Care Team (Late st Contact Info) Description 06/16/2009 11:20 PM CDT - 06/17/2009 12:30 AM CDT Hospital Encounter [facility] Sandeep Rolle MD [address] [facility] [place] [address] Deirdre Phillips MD [address] [facility] [place] [address] [place] [address] Croup Social History Tobacco Use Types Packs/Day Years Used Date Smoking Tobacco: Never Assessed Comments Unknown Sex and Gender Information Value Date Recorded Sex Assigned at Not on file Legal Sex Female 4:21 PM HEATING ENGINEER Gender Identity Not on file Sexual Orientation Not on file documented as of this encounter Plan of Treatment Not on file documented as of this encounter Visit Diagnoses Diagnosis Croup documented in this encounter
== END 2024-09-17 13:54 | disposition home or self-care (01) | DRG 807 ==
LOC: ANHLDR 02:11 → ANHOB2 18:58
PROVIDERS: Admitting Provider Obstetrics & Gynecology; Visit Provider Obstetrics & Gynecology
DX: O42.02 Full-term premature rupture of membranes, onset of labor within 24 hours of rupture (principal); Z37.0 Single live birth; O99.824 Streptococcus B carrier state complicating childbirth; Z3A.38 38 weeks gestation of pregnancy; O70.0 First degree perineal laceration during delivery; O32.6XX0 Maternal care for compound presentation, not applicable or unspecified
CPT/HCPCS: 36415; 85014; 85018; 85025; 86592; 86703; 86850; 86900; 86901; A9270; G0432; J0290; J2590; J2795; J3010; J7120